=== PATIENT | male | born 1940 | race Caucasian/White ===

== ENCOUNTER 2017-06-16 16:09 | Inpatient (IN) | payer OTHER, MEDICARE ==
[~2017-06-16] VITALS: Ht 180.3 cm; Wt 82.1 kg
[2017-06-16] VITALS (7 sets, daily range): BP systolic 148–206; BP diastolic 67–91; PULSE 68–87; RESP 16–20; TEMP 98.4; O2SAT 95–98
[~2017-06-16 16:09] MED LIST: BETA80TA PO; CLAR10TA7 PO; FINA5TAB77 PO; FOLI1 PO; HYDR12.56 PO; LISI-360 PO; OMEP20TA PO; POLY10O OD; PROS5TAB2 PO; THIA100T PO; TUSSSUS PO
--- NOTE | 2017-06-16 17:09 | PD ---
HPI Chief Complaint: Neuro Symptoms/ Deficits Time Seen by Provider: 16:55 Travel History International Travel<30 days: No Contact w/Intl Traveler<30days: No Traveled to known affect area: No History of Present Illness HPI This is a 76-year-old male who presents for evaluation. Reports that he woke up this morning feeling tired and generalized weakness. He reports that acute 15 p.m. today he was walking into a pond shop when he felt like he lost the ability to see the words that he wanted to say. This lasted for approximately one hour and then completely resolved. He currently feels better, still feels generalized fatigue. He has never had this happen before. He denies any episodes of chest pain, shortness of breath, abdominal pain, facial droop, slurred speech, blurred vision, vision loss, weakness in the upper or lower extremities, numbness or tingling. He reports a history of hypertension. 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) Cancer: No Cardiovascular Problems: Yes High Cholesterol: No Chemotherapy: No Chest Pain: No Congestive Heart Failure: No COPD: No Cerebrovascular Accident: No Diabetes: No Diminished Hearing: No Endocrine: No Gastrointestinal Disorders: Yes GERD: No Glaucoma: No Genitourinary: No Headaches: No Hepatitis: No Hiatal Hernia: No Hypertension: Yes Immune Disorder: No Implanted Vascular Access Dvce: No Kidney Stones: No Musculoskeletal: Yes Neurologic: No Psychiatric: No Reproductive: No Respiratory: No Myocardial Infarction: No Radiation Therapy: No Renal Failure: No Seizures: No Sickle Cell Disease: No Sleep Apnea: No Thyroid Disease: No Ulcer: No Tetanus Vaccination: Unknown Past Surgical History Abdominal Surgery: Yes Cardiac Surgery: No Ear Surgery: No Endocrine Surgery: No Eye Surgery: No Genitourinary Surgery: No Gynecologic Surgery: No Insulin Pump: No Joint Replacement: No Neurologic Surgery: No Oral Surgery: No Pacemaker: Yes Thoracic Surgery: No Other Surgery: Yes Social History Alcohol Use: Yes (occu or monthly) Tobacco Use: No Substance Use: No Allergies-Medications (Allergen,Severity, Reaction): Coded Allergies: No Known Allergies (Verified , 06/16/17) Reported Meds & Prescriptions Reported Meds & Active Scripts Active Reported Betapace (Sotalol Hcl) 80 Mg Tab 80 Mg PO BID Folate 1 Mg Tab (Folic Acid) 1 Mg Tab 1 Mg PO DAILY Thiamine HCl 100 Mg Tab 100 Mg PO DAILY Proscar 5 Mg Tab (Finasteride) 5 Mg Tab 5 Mg PO DAILY Omeprazole 20 Mg Tab 20 Mg PO DAILY Hctz (Hydrochlorothiazide) 12.5 Mg Cap 12.5 Mg PO DAILY Tussionex (Chlorphenir/Hydrocodone Polistirex) Liqcr 5 Ml PO BID Claritin (Loratadine) 10 Mg Tab 5 Mg PO BID Polytrim Opth (Polymyxin/Trimethoprim Sulfate) 10 Ml Soln 1 Drop OD DIRECTED 7 Days Lisinopril 10 Mg Tab 10 Mg PO DAILY Proscar (Finasteride) 5 Mg Tab 5 Mg PO DAILY Omeprazole 20 Mg Tab 20 Mg PO DAILY Review of Systems Except as stated in HPI: all other systems reviewed are Neg Physical Exam Narrative GENERAL: Well-developed well-nourished male in no acute distress SKIN: Warm and dry. HEAD: Atraumatic. Normocephalic. EYES: Pupils equal and round. No scleral icterus. No injection or drainage. ENT: No nasal bleeding or discharge. Mucous membranes pink and moist. NECK: Trachea midline. No JVD. CARDIOVASCULAR: Regular rate and rhythm. No murmur appreciated. RESPIRATORY: No accessory muscle use. Clear to auscultation. Breath sounds equal bilaterally. GASTROINTESTINAL: Abdomen soft, non-tender, nondistended. Hepatic and splenic margins not palpable. MUSCULOSKELETAL: No obvious deformities. No clubbing. No cyanosis. No edema. NEUROLOGICAL: Awake and alert. No obvious cranial nerve deficits. Motor grossly within normal limits. Normal speech. No ataxia, no dysarthria, no upper or lower extremity drift, vision is intact in the peripheral gallo bilaterally. PSYCHIATRIC: Appropriate mood and affect; insight and judgment normal. Data Data Last Documented VS Vital Signs Date Time Temp Pulse Resp B/P (MAP) Pulse Ox O2 Delivery O2 Flow Rate FiO2 06/16/17 18:44 68 206/89 (128) 06/16/17 18:18 17 95 Nasal Cannula 2.00 06/16/17 16:11 98.4 Orders Orders Electrocardiogram (06/16/17 17:04) Prothrombin Time / Inr (Pt) (06/16/17 17:04) Act Partial Throm Time (Ptt) (06/16/17 17:04) Complete Blood Count With Diff (06/16/17 17:04) Comprehensive Metabolic Panel (06/16/17 17:04) Creatine Kinase (Cpk) (06/16/17 17:04) Troponin I (06/16/17 17:04) Ct Brain W/O Iv Contrast(Rout) (06/16/17 17:04) Ecg Monitoring (06/16/17 17:04) Iv Access Insert/Monitor (06/16/17 17:04) Oximetry (06/16/17 17:04) Blood Glucose (06/16/17 17:04) Sodium Chloride 0.9% Flush (Ns Flush) (06/16/17 17:15) CKMB (06/16/17 17:09) CKMB% (06/16/17 17:09) Aspirin Chew (Aspirin Chew) (06/16/17 18:15) Nitroglycerin 2% Oint (Nitroglycerin 2% (06/16/17 18:30) Clonidine (Catapres) (06/16/17 19:00) Labs Laboratory Tests Test 06/16/17 17:09 White Blood Count 7.3 TH/MM3 Red Blood Count 4.62 MIL/MM3 Hemoglobin 13.7 GM/DL Hematocrit 41.7 % Mean Corpuscular Volume 90.2 FL Mean Corpuscular Hemoglobin 29.6 PG Mean Corpuscular Hemoglobin Concent 32.8 % Red Cell Distribution Width 13.8 % Platelet Count 144 TH/MM3 Mean Platelet Volume 9.5 FL Neutrophils (%) (Auto) 73.7 % Lymphocytes (%) (Auto) 14.2 % Monocytes (%) (Auto) 10.9 % Eosinophils (%) (Auto) 0.9 % Basophils (%) (Auto) 0.3 % Neutrophils # (Auto) 5.4 TH/MM3 Lymphocytes # (Auto) 1.0 TH/MM3 Monocytes # (Auto) 0.8 TH/MM3 Eosinophils # (Auto) 0.1 TH/MM3 Basophils # (Auto) 0.0 TH/MM3 CBC Comment DIFF FINAL Differential Comment Prothrombin Time 11.2 SEC Prothromb Time International Ratio 1.0 RATIO Activated Partial Thromboplast Time 26.4 SEC Blood Urea Nitrogen 23 MG/DL Creatinine 1.16 MG/DL Random Glucose 97 MG/DL Total Protein 6.9 GM/DL Albumin 4.1 GM/DL Calcium Level 9.1 MG/DL Alkaline Phosphatase 86 U/L Aspartate Amino Transf (AST/SGOT) 25 U/L Alanine Aminotransferase (ALT/SGPT) 32 U/L Total Bilirubin 0.7 MG/DL Sodium Level 139 MEQ/L Potassium Level 4.2 MEQ/L Chloride Level 108 MEQ/L Carbon Dioxide Level 22.4 MEQ/L Anion Gap 9 MEQ/L Estimat Glomerular Filtration Rate 61 ML/MIN Total Creatine Kinase 376 U/L Creatine Kinase MB 5.8 NG/ML Creatine Kinase MB % 1.5 % Troponin I 0.19 NG/ML [facility] Medical Decision Making Medical Screen Exam Complete: Yes Emergency Medical Condition: Yes Medical Record Reviewed: Yes Differential Diagnosis TIA, CVA, hypoglycemia, electrolyte abnormality, intracranial hemorrhage, intracranial mass Narrative Course This is a 76-year-old male has been feeling tired since this morning. He had a one-hour episode of difficulty with word finding which resolved prior to arrival. His neurologic examination is currently normal. His symptoms are suggestive of a TIA. Plan is for basic lab work, CT of the brain. The patient will be placed on ECG monitoring and pulse oximetry. The patient's CT the brain is normal. His EKG does reveal some ST depression in the lateral leads. His troponin is elevated 0.19. He said no chest pain or shortness of breath today. At this point on the plane to be to admit the patient for TIA, elevated troponin. He was given a full dose aspirin. Nitropaste was added on as he was hypertensive. Additionally a dose of clonidine was added. Diagnosis Primary Impression: TIA (transient ischemic attack) Qualified Codes: G45.9 - Transient cerebral ischemic attack, unspecified Additional Impression: Elevated troponin Admitting Information Admitting Physician Requests: Fernando Herrera Jun 16, 2017 17:09
[2017-06-16] MEDS ORDERED: SODIUM CHLORIDE 0.9% FLUSH 10 ML FLUSH IVF PRN (17:15)
[2017-06-16 17:30] LABS: AUTOMATED NEUTROPHIL # 5.4 TH/MM3 (1.8-7.7); BASOPHIL % 0.3 % (0.0-2.0); EOSINOPHIL # 0.1 TH/MM3 (0-0.4); EOSINOPHIL % 0.9 % (0.0-4.0); HEMATOCRIT 41.7 % (39.0-51.0); HEMO FLAGS DIFF FINAL; LYMPH % 14.2 % (9.0-44.0); MEAN CELL VOLUME 90.2 FL (80.0-100.0); MEAN CORPUSCULAR HEMOGLOBIN 29.6 PG (27.0-34.0); MEAN CORPUSCULAR HGB CONC 32.8 % (32.0-36.0); MONO % 10.9 % (0.0-8.0); NEUT % 73.7 % (16.0-70.0); PLATELET COUNT 144 TH/MM3 (150-450); RED BLOOD COUNT 4.62 MIL/MM3 (4.50-5.90); RED CELL DISTRIBUTION WIDTH 13.8 % (11.6-17.2); WHITE BLOOD COUNT 7.3 TH/MM3 (4.0-11.0)
[2017-06-16 17:43] LABS: APTT (PATIENT) 26.4 SEC (24.3-30.1); PROTHROMBIN TIME - PATIENT 11.2 SEC (9.8-11.6)
[2017-06-16 17:47] LABS: ANION GAP 9 MEQ/L (5-15); AST (GOT) 25 U/L (15-37); BICARBONATE 22.4 MEQ/L (21.0-32.0); BLOOD UREA NITROGEN 23 MG/DL (7-18); CHLORIDE 108 MEQ/L (98-107); GLOMERULAR FILTRATION RATE 61 ML/MIN (>89); POTASSIUM 4.2 MEQ/L (3.5-5.1); SODIUM (NA) 139 MEQ/L (136-145)
[2017-06-16 17:49] LABS: ALT (GPT) 32 U/L (12-78)
[2017-06-16 17:52] LABS: ALKALINE PHOSPHATASE 86 U/L (45-117); CREATINE KINASE 376 U/L (39-308); TOTAL BILIRUBIN ADULT 0.7 MG/DL (0.2-1.0)
--- NOTE | 2017-06-16 17:56 | RADRPT ---
EXAM DATE/TIME: 06/16/2017 17:36 [facility] COMPARISON: No previous studies available for comparison. INDICATIONS : Loss of speech for two hours, now resloved. Patient complains of headache. RADIATION DOSE: 36.32 CTDIvol (mGy) MEDICAL HISTORY : Cardiovascular disease. Hypertension. SURGICAL HISTORY : Pacemaker. ENCOUNTER: Initial ACUITY: 1 day PAIN SCALE: 5/10 LOCATION: cranial TECHNIQUE: Multiple contiguous axial images were obtained of the head. Using automated exposure control and adj ustment of the mA and/or kV according to patient size, radiation dose was kept as low as reasonably a chievable to obtain optimal diagnostic quality images. DICOM format image data is available electro nically for review and comparison. FINDINGS: CEREBRUM: The ventricles are normal for age. No evidence of midline shift, mass lesion, hemorrhage or acute in farction. No extra-axial fluid collections are seen. POSTERIOR FOSSA: The cerebellum and brainstem are intact. The 4th ventricle is midline. The cerebellopontine angle i s unremarkable. EXTRACRANIAL: The visualized portion of the orbits is intact. SKULL: The calvaria is intact. No evidence of skull fracture. CONCLUSION: Negative exam. Maxim Ramachandran MD on June 16, 2017 at 17:54 Board Certified Radiologist. This report was verified electronically.
[2017-06-16 18:05] LABS: CKMB 5.8 NG/ML (0.5-3.6)
[2017-06-16] MEDS ORDERED: ASPIRIN 81 MG CHEW TAB CHEW ONE (18:15)
--- NOTE | 2017-06-16 18:22 | PD ---
Data Data Last Documented VS Vital Signs Date Time Temp Pulse Resp B/P (MAP) Pulse Ox O2 Delivery O2 Flow Rate FiO2 06/16/17 18:18 76 17 199/89 (125) 95 Nasal Cannula 2.00 06/16/17 16:11 98.4 Orders Orders Electrocardiogram (06/16/17 17:04) Prothrombin Time / Inr (Pt) (06/16/17 17:04) Act Partial Throm Time (Ptt) (06/16/17 17:04) Complete Blood Count With Diff (06/16/17 17:04) Comprehensive Metabolic Panel (06/16/17 17:04) Creatine Kinase (Cpk) (06/16/17 17:04) Troponin I (06/16/17 17:04) Ct Brain W/O Iv Contrast(Rout) (06/16/17 17:04) Ecg Monitoring (06/16/17 17:04) Iv Access Insert/Monitor (06/16/17 17:04) Oximetry (06/16/17 17:04) Blood Glucose (06/16/17 17:04) Sodium Chloride 0.9% Flush (Ns Flush) (06/16/17 17:15) CKMB (06/16/17 17:09) CKMB% (06/16/17 17:09) Aspirin Chew (Aspirin Chew) (06/16/17 18:15) Nitroglycerin 2% Oint (Nitroglycerin 2% (06/16/17 18:30) Labs Laboratory Tests Test 06/16/17 17:09 White Blood Count 7.3 TH/MM3 Red Blood Count 4.62 MIL/MM3 Hemoglobin 13.7 GM/DL Hematocrit 41.7 % Mean Corpuscular Volume 90.2 FL Mean Corpuscular Hemoglobin 29.6 PG Mean Corpuscular Hemoglobin Concent 32.8 % Red Cell Distribution Width 13.8 % Platelet Count 144 TH/MM3 Mean Platelet Volume 9.5 FL Neutrophils (%) (Auto) 73.7 % Lymphocytes (%) (Auto) 14.2 % Monocytes (%) (Auto) 10.9 % Eosinophils (%) (Auto) 0.9 % Basophils (%) (Auto) 0.3 % Neutrophils # (Auto) 5.4 TH/MM3 Lymphocytes # (Auto) 1.0 TH/MM3 Monocytes # (Auto) 0.8 TH/MM3 Eosinophils # (Auto) 0.1 TH/MM3 Basophils # (Auto) 0.0 TH/MM3 CBC Comment DIFF FINAL Differential Comment Prothrombin Time 11.2 SEC Prothromb Time International Ratio 1.0 RATIO Activated Partial Thromboplast Time 26.4 SEC Blood Urea Nitrogen 23 MG/DL Creatinine 1.16 MG/DL Random Glucose 97 MG/DL Total Protein 6.9 GM/DL Albumin 4.1 GM/DL Calcium Level 9.1 MG/DL Alkaline Phosphatase 86 U/L Aspartate Amino Transf (AST/SGOT) 25 U/L Alanine Aminotransferase (ALT/SGPT) 32 U/L Total Bilirubin 0.7 MG/DL Sodium Level 139 MEQ/L Potassium Level 4.2 MEQ/L Chloride Level 108 MEQ/L Carbon Dioxide Level 22.4 MEQ/L Anion Gap 9 MEQ/L Estimat Glomerular Filtration Rate 61 ML/MIN Total Creatine Kinase 376 U/L Creatine Kinase MB 5.8 NG/ML Creatine Kinase MB % 1.5 % Troponin I 0.19 NG/ML MDM Medical Record Reviewed: Yes Supervised Visit with ARA: Yes Narrative Course I, Dr. Gomez, have reviewed the advance practice practitioner's documentation and am in agreement, met with the patient face to face, made the diagnosis, and the medical decision making was done by me. *My assessment and Findings: CBC & BMP Diagram 06/16/17 17:09 Total Protein 6.9, Albumin 4.1, Calcium Level 9.1, Alkaline Phosphatase 86, Aspartate Amino Transf (AST/SGOT) 25, Alanine Aminotransferase (ALT/SGPT) 32, Total Bilirubin 0.7 Last [address] 06/16/17 1704 Signed Impressions: Service Date/Time: Friday, June 16, 2017 17:36 - CONCLUSION: Negative exam. Maxim Ramachandran MD Patient will be admitted for serial enzymes given troponin of 0.12 Further investigation of possible TIA. Please refer to the mid-level note. Tyrone Gomez MD Jun 16, 2017 18:22
[2017-06-16] MEDS ORDERED: NITROGLYCERIN 2% OINT 1 GM PACKET TOP ONE (18:30)
[2017-06-16] MEDS ORDERED: BISACODYL 10 MG SUPP RECTAL PRN (19:00)
[2017-06-16] MEDS ORDERED: SODIUM CHLORIDE 0.9% FLUSH 10 ML FLUSH IV FLUSH PRN (19:00)
[2017-06-16] MEDS ORDERED: LACTULOSE SYRUP 20 GM/30 ML CUP PO PRN (19:00)
[2017-06-16] MEDS ORDERED: SENNOSIDES 8.6 MG TAB PO PRN (19:00)
[2017-06-16] MEDS ORDERED: MAGNESIUM HYDROXIDE SUSP 30 ML CUP PO PRN (19:00)
[2017-06-16] MEDS ORDERED: cloNIDine HCL 0.1 MG TAB PO ONE (19:00)
[2017-06-16] MEDS ORDERED: NALOXONE HCL 0.4 MG/ML AMP IV PUSH PRN (19:00)
--- NOTE | 2017-06-16 19:53 | RADRPT ---
EXAM DATE/TIME: 06/16/2017 19:21 [facility] COMPARISON: No previous studies available for comparison. INDICATIONS : Transient isechmic attack. MEDICAL HISTORY : Hypertension. Arthritis. Cataracts. Gastrointesinal disorder. Irregular heartbeat. SURGICAL HISTORY : Pacemaker. Left hip replacement. Left knee surgery. Pelvis surgery. ENCOUNTER: Initial ACUITY: 1 day PAIN SCORE: 0/10 LOCATION: Bilateral neck PEAK SYSTOLIC VELOCITIES (cm/sec): ICA/CCA RATIO: Right: 0.9 Left: 0.7 ICA: Right: 98 Left: 70 CCA: Right: 105 Left: 97 ECA: Right: 185 Left: 104 VERTEBRAL: Right: 35 antegrade Left: 59 antegrade Elevated flow velocities and ICA/CCA ratios have been found to correlate with increased degrees of vessel stenosis, calculated as percentage of diameter relative to a normal segment of distal ICA/CCA FINDINGS: RIGHT CAROTID: No significant stenosis is visualized. The waveforms are within normal limits. LEFT CAROTID: No significant stenosis is visualized. The waveforms are within normal limits. VERTEBRAL ARTERIES: Antegrade flow is seen in both vertebral arteries. MISCELLANEOUS: None. CONCLUSION: No evidence of flow-limiting carotid stenosis Sebastián Harley MD on June 16, 2017 at 19:49 Board Certified Radiologist. This report was verified electronically.
--- NOTE | 2017-06-16 20:42 | HHI.HP ---
HPI Service [facility] Primary Care Physician Unknown Admission Diagnosis TIA, elevated troponin Diagnoses: Travel History International Travel<30 Days: No Contact w/Intl Traveler <30 Da: No Traveled to Known Affected Are: No History of Present Illness when getting out of car with a friend going to [place], was not able to talk around 2:30p.m lasted for about 1 hrs was able to talk, but words did not make sense, sounded like strange words went back home after this, but did go into [place], he did not even really try talking there rested for few min, and started talking ok flavia priscila him to er soon after no other symptoms did travel to [place] by car 2 weeks ago- [address]- stopped only when "my tank ran out" about 3-4 times no calf pain but felt heavy on both legs no shortness of breath Review of Systems Except as stated in HPI: all other systems reviewed are Neg Past Family Social History Past Medical History htn svt- s/p ablation aflutter ablation grade I diastolic heart failure- by echo in 2012 melanoma at the back- s/p resection about 3-4 yrs ago Past Surgical History cardiac ablation for atrial tachycardia/ a flutter melanoma resection 2002- left hip replacement left knee arthoscopic sx tonsilectomy Allergies: Coded Allergies: No Known Allergies (Verified , 06/16/17) Family History father- 1960- , think cancer but not sure brother- had a stroke about 5 yrs ago and after that Social History used to smoke - quit in 1978 quit alcohol 1 yr ago or so- only once every 3 or 4 week,one beer lives on his own, still drives Physical Exam Vital Signs Vital Signs Date Time Temp Pulse Resp B/P (MAP) Pulse Ox O2 Delivery O2 Flow Rate FiO2 06/16/17 20:03 98.4 73 17 167/91 (116) 98 Room Air 06/16/17 18:59 70 184/87 (119) 06/16/17 18:44 68 206/89 (128) 06/16/17 18:18 76 17 199/89 (125) 95 Nasal Cannula 2.00 10/23/17 16:52 83 16 189/87 (121) 96 Nasal Cannula 2.00 06/16/17 16:47 73 20 189/83 (118) 97 Nasal Cannula 2.00 06/16/17 16:11 98.4 87 16 148/67 (94) 95 Physical Exam GENERAL: This is a well-nourished, well-developed patient, in no apparent distress. SKIN: No rashes, ecchymoses or lesions. Cool and dry. HEAD: Atraumatic. Normocephalic. No temporal or scalp tenderness. EYES: Pupils equal round and reactive. Extraocular motions intact. No scleral icterus. No injection or drainage. ENT: Nose without bleeding, purulent drainage or septal hematoma. Throat without erythema, tonsillar hypertrophy or exudate. Uvula midline. Airway patent. NECK: Trachea midline. No JVD or lymphadenopathy. Supple, nontender, no meningeal signs. CARDIOVASCULAR: Regular rate and rhythm without murmurs, gallops, or rubs. RESPIRATORY: Clear to auscultation. Breath sounds equal bilaterally. No wheezes , rales, or rhonchi. GASTROINTESTINAL: Abdomen soft, non-tender, nondistended. No hepato-splenomegaly , or palpable masses. No guarding. MUSCULOSKELETAL: Extremities without clubbing, cyanosis, or edema. No joint tenderness, effusion, or edema noted. No calf tenderness. Negative Homans sign bilaterally. NEUROLOGICAL: Awake and alert. Cranial nerves II through XII intact. Motor and sensory grossly within normal limits. Five out of 5 muscle strength in all muscle groups. Normal speech. Laboratory Laboratory Tests Test 06/16/17 17:09 06/16/17 19:57 White Blood Count 7.3 Red Blood Count 4.62 Hemoglobin 13.7 Hematocrit 41.7 Mean Corpuscular Volume 90.2 Mean Corpuscular Hemoglobin 29.6 Mean Corpuscular Hemoglobin Concent 32.8 Red Cell Distribution Width 13.8 Platelet Count 144 Mean Platelet Volume 9.5 Neutrophils (%) (Auto) 73.7 Lymphocytes (%) (Auto) 14.2 Monocytes (%) (Auto) 10.9 Eosinophils (%) (Auto) 0.9 Basophils (%) (Auto) 0.3 Neutrophils # (Auto) 5.4 Lymphocytes # (Auto) 1.0 Monocytes # (Auto) 0.8 Eosinophils # (Auto) 0.1 Basophils # (Auto) 0.0 CBC Comment DIFF FINAL Differential Comment Prothrombin Time 11.2 Prothromb Time International Ratio 1.0 Activated Partial Thromboplast Time 26.4 Blood Urea Nitrogen 23 Creatinine 1.16 Random Glucose 97 Total Protein 6.9 Albumin 4.1 Calcium Level 9.1 Alkaline Phosphatase 86 Aspartate Amino Transf (AST/SGOT) 25 Alanine Aminotransferase (ALT/SGPT) 32 Total Bilirubin 0.7 Sodium Level 139 Potassium Level 4.2 Chloride Level 108 Carbon Dioxide Level 22.4 Anion Gap 9 Estimat Glomerular Filtration Rate 61 Total Creatine Kinase 376 Creatine Kinase MB 5.8 Creatine Kinase MB % 1.5 Troponin I 0.19 Result Diagram: 06/16/17170806/16/171708 Caprinsam VTE Risk Assessment Caprini Risk Assessment Model Point Value = 1 Point Value = 2 Point Value = 3 Point Value = 5 Age 41-60 Minor surgery BMI > 25 kg/m2 Swollen legs Varicose veins or History of unexplained or recurrent spontaneous Oral contraceptives or hormone replacement Sepsis (< 1 month) Serious lung disease, including pneumonia (< 1 month) Abnormal pulmonary function Acute myocardial infarction Congestive heart failure (< 1 month) History of inflammatory bowel disease Medical patient at bed rest Age 61-74 Arthroscopic surgery Major open surgery (> 45 min) Laparoscopic surgery (> 45 min) Malignancy Confined to bed (> 72 hours) Immobilizing plaster cast Central venous access Age >= 75 History of VTE Family history of VTE Factor V Leiden Prothrombin [id number] Lupus anticoagulant Anticardiolipin antibodies Elevated serum homocysteine Heparin-induced thrombocytopenia Other congenital or acquired thrombophilia Stroke (< 1 month) Elective arthroplasty Hip, pelvis, or leg fracture Acute spinal cord injury (< 1 month) Prophylaxis Regimen Total Risk Factor Score Risk Level Prophylaxis Regimen 0-1 Low Early ambulation 2 Moderate Order ONE of the following: *Sequential Compression Device (SCD) *Heparin 5000 units SQ BID 3-4 Higher Order ONE of the following medications: *Heparin 5000 units SQ TID *Enoxaparin/Lovenox 40 mg SQ daily (WT < 150 kg, CrCl > 30 mL/min) *Enoxaparin/Lovenox 30 mg SQ daily (WT < 150 kg, CrCl > 10-29 mL/min) *Enoxaparin/Lovenox 30 mg SQ BID (WT < 150 kg, CrCl > 30 mL/min) AND/OR *Sequential Compression Device (SCD) 5 or more Highest Order ONE of the following medications: *Heparin 5000 units SQ TID (Preferred with Epidurals) *Enoxaparin/Lovenox 40 mg SQ daily (WT < 150 kg, CrCl > 30 mL/min) *Enoxaparin/Lovenox 30 mg SQ daily (WT < 150 kg, CrCl > 10-29 mL/min) *Enoxaparin/Lovenox 30 mg SQ BID (WT < 150 kg, CrCl > 30 mL/min) AND *Sequential Compression Device (SCD) Assessment and Plan Assessment and Plan TIA elevated troponin hypertensive emergency inpatient admission Alex Mcfadden MD Jun 16, 2017 20:42
[2017-06-16] MEDS: SODIUM CHLORIDE 0.9% FLUSH 10 ML FLUSH IV FLUSH SCH (21:59)
[2017-06-16] MEDS: ENOXAPARIN SODIUM 100 MG/ML SYRINGE SQ SCH (22:00)
--- NOTE | 2017-06-16 22:08 | RADRPT ---
EXAM DATE/TIME: 06/16/2017 21:35 [facility] COMPARISON: No previous studies available for comparison. INDICATIONS : Bilateral leg swelling. MEDICAL HISTORY : Hypertension. Arthritis. Cataracts. Gastrointesinal disorder. Irregular heartbeat. SURGICAL HISTORY : Pacemaker. Left hip replacement. Left knee surgery. Pelvis surgery. ENCOUNTER: Initial ACUITY: 1 day PAIN SCORE: 0/10 LOCATION: Bilateral legs. TECHNIQUE: Venous ultrasound of the left and right leg was performed from the inguinal ligament to the proximal calf. Real-time, color Doppler and spectral tracing, compression and augmentation techniques were us ed. FINDINGS: RIGHT LEG: There is normal compressibility of the deep venous system from the inguinal region to the proximal ca lf. No echogenic clot is seen in the lumen of the common femoral, femoral, popliteal, and posterior tibial veins. There is a normal response of the venous system to proximal and distal augmentation an d respiration. LEFT LEG: There is normal compressibility of the deep venous system from the inguinal region to the proximal ca lf. No echogenic clot is seen in the lumen of the common femoral, femoral, popliteal, and posterior tibial veins. There is a normal response of the venous system to proximal and distal augmentation an d respiration. CONCLUSION: Normal examination. Sebastián Harley MD on June 16, 2017 at 22:06 Board Certified Radiologist. This report was verified electronically.
[2017-06-17] VITALS (9 sets, daily range): BP systolic 132–202; BP diastolic 63–105; PULSE 56–80; RESP 16–23; TEMP 97.5–99.3; O2SAT 94–98
--- NOTE | 2017-06-17 08:05 | PD.CONS ---
History of Present Illness Service Neurology Consult Requested By mike Reason for Consult tia Primary Care Physician Unknown History of Present Illness 76 y/o admitted for tia. sudden onset difficulty with speech. felt mild generalized weakness. lasted minutes and subsided. remembers event. no vision loss. no trauma. glucose 97, ct brain naicp. no previous occurrence. not on any blood thinners/ no aspirin. hx of svt/?aflutter. feels well at present. Review of Systems Except as stated in HPI: all other systems reviewed are Neg Past Family Social History Past Medical History htn svt- s/p ablation at [facility] [place] aflutter ablation grade I diastolic heart failure- by echo in 2013 melanoma at the back- s/p resection about 3-4 yrs ago Past Surgical History cardiac ablation for atrial tachycardia/ a flutter melanoma resection 2002- left hip replacement left knee arthoscopic sx tonsilectomy Allergies: Coded Allergies: No Known Allergies (Verified , 06/16/17) Family History brother- had a stroke Social History quit tob quit alcohol 1 yr ago Review of Systems All other ROS: ROS reviewed as documented in chart Past Family Social History Allergies: Coded Allergies: No Known Allergies (Verified , 06/16/17) Active Ordered Medications Current Medications Medications (Trade) Dose Ordered Sig/Don Route Start Time Stop Time Status Last Admin (NS Flush) 2 ml UNSCH PRN IVF 06/16/17 17:15 (NS Flush) 2 ml UNSCH PRN IV FLUSH 06/16/17 19:00 (NS Flush) 2 ml BID IV FLUSH 06/16/17 21:00 06/16/17 21:59 (Narcan Inj) 0.4 mg UNSCH PRN IV PUSH 06/16/17 19:00 (Milk Of Magnesia Liq) 30 ml Q12H PRN PO 06/16/17 19:00 (Senokot) 17.2 mg Q12H PRN PO 06/16/17 19:00 (Dulcolax Supp) 10 mg DAILY PRN RECTAL 06/16/17 19:00 (Lactulose Liq) 30 ml DAILY PRN PO 06/16/17 19:00 (Catapres) 0.1 mg Q6H PRN PO 06/16/17 19:00 (Ecotrin Ec) 81 mg DAILY PO 06/17/17 09:00 (Lovenox Inj) 100 mg Q12H SQ 06/16/17 21:00 06/16/17 22:00 Exam I&O / VS Vital Signs Date Time Temp Pulse Resp B/P (MAP) Pulse Ox O2 Delivery O2 Flow Rate FiO2 06/17/17 06:20 56 16 132/70 (90) 95 Room Air 06/17/17 00:35 61 23 138/64 (88) 95 06/16/17 20:03 98.4 73 17 167/91 (116) 98 Room Air 06/16/17 18:59 70 184/87 (119) 06/16/17 18:44 68 206/89 (128) 06/16/17 18:18 76 17 199/89 (125) 95 Nasal Cannula 2.00 06/16/17 16:52 83 16 189/87 (121) 96 Nasal Cannula 2.00 06/16/17 16:47 73 20 189/83 (118) 97 Nasal Cannula 2.00 06/16/17 16:11 98.4 87 16 148/67 (94) 95 General: Alert and Oriented, No acute distress Eye: EOMI Respiratory: Non-labored respirations Cardiology: Normal rate Musculoskeletal: ROM Neurologic: Alert, Oriented, Normal sensory, Normal motor, No focal defects, CN II-XII intact, Gag reflex normal, Normal DTR's Psychiatric: Cooperative, Appropriate mood & affect, Normal judgement, Non- suicidal Exam Comments pleasant, ox 3, able to name, read, follows, vff, ou 3-2mm, face sym, no drift Review/Management Diagnosis/Plan: (1) TIA (transient ischemic attack) ICD Codes: G45.9 - Transient cerebral ischemic attack, unspecified Status: Acute Plan: probable left mca tia vs htn encephalopathy recs mri/mra brain aspirin qdaily cardiology eval re: does the pt have aflutter/afib, if so, recommendation on oac ldl <70 bp <200/100 follow exam d/c planning in am (2) Hypertensive encephalopathy ICD Codes: I67.4 - Hypertensive encephalopathy Status: Acute (3) SVT (supraventricular tachycardia) ICD Codes: I47.1 - Supraventricular tachycardia Status: Chronic (4) Elevated troponin ICD Codes: R74.8 - Abnormal levels of other serum enzymes Status: Acute Problem Qualifiers (1) TIA (transient ischemic attack): Qualified Codes: G45.9 - Transient cerebral ischemic attack, unspecified Vernon Sprague MD Jun 17, 2017 08:05
[2017-06-17 08:15] LABS: AUTOMATED NEUTROPHIL # 3.1 TH/MM3 (1.8-7.7); BASOPHIL % 0.7 % (0.0-2.0); EOSINOPHIL # 0.2 TH/MM3 (0-0.4); EOSINOPHIL % 2.9 % (0.0-4.0); HEMATOCRIT 38.4 % (39.0-51.0); HEMO FLAGS DIFF FINAL; LYMPHOCYTE # 1.4 TH/MM3 (1.0-4.8); MEAN CELL VOLUME 90.7 FL (80.0-100.0); MEAN CORPUSCULAR HGB CONC 33.1 % (32.0-36.0); MONO % 10.9 % (0.0-8.0); NEUT % 59.5 % (16.0-70.0); PLATELET COUNT 118 TH/MM3 (150-450); RED BLOOD COUNT 4.24 MIL/MM3 (4.50-5.90); RED CELL DISTRIBUTION WIDTH 13.8 % (11.6-17.2); WHITE BLOOD COUNT 5.3 TH/MM3 (4.0-11.0)
[2017-06-17 08:31] LABS: ANION GAP 8 MEQ/L (5-15); AST (GOT) 17 U/L (15-37); BICARBONATE 25.2 MEQ/L (21.0-32.0); BLOOD UREA NITROGEN 21 MG/DL (7-18); CHLORIDE 109 MEQ/L (98-107); GLOMERULAR FILTRATION RATE 85 ML/MIN (>89); POTASSIUM 3.7 MEQ/L (3.5-5.1); SODIUM (NA) 142 MEQ/L (136-145)
[2017-06-17 08:36] LABS: ALKALINE PHOSPHATASE 73 U/L (45-117); ALT (GPT) 24 U/L (12-78); TOTAL BILIRUBIN ADULT 0.8 MG/DL (0.2-1.0)
[2017-06-17] MEDS: SODIUM CHLORIDE 0.9% FLUSH 10 ML FLUSH IV FLUSH SCH ×2 (08:59→21:02)
[2017-06-17] MEDS: ENOXAPARIN SODIUM 100 MG/ML SYRINGE SQ SCH ×2 (09:00→21:01)
[2017-06-17] MEDS: ASPIRIN EC 81 MG TABEC PO SCH (09:00)
[2017-06-17] MEDS ORDERED: LIPI20TA PO (11:09)
[2017-06-17] MEDS ORDERED: TAMS5CAP PO (11:09)
[2017-06-17] MEDS ORDERED: NAPR500 PO (11:09)
[2017-06-17] MEDS ORDERED: PROS5TAB PO (11:09)
[2017-06-17] MEDS ORDERED: OMEP20TA PO (11:09)
[2017-06-17] MEDS ORDERED: COZA50TA PO (11:09)
--- NOTE | 2017-06-17 13:02 | RADRPT ---
EXAM DATE/TIME: 06/17/2017 11:39 [facility] COMPARISON: No previous studies available for comparison. INDICATIONS : TIA. Loss of speech for two hours, now resolved. MEDICAL HISTORY : Hypertension. SURGICAL HISTORY : Left hip and knee. Pelvis. ENCOUNTER: Subsequent ACUITY: 1 day PAIN SCORE: 0/10 LOCATION: head. Please note a normal MRA of the brain does not entirely exclude the possibility of a small aneurysm, nor the possibility of distal intracranial vessel disease. TECHNIQUE: 3D time of flight MRA was performed. Source images, multiplanar STS MIP, and 3D volume MIP reconstru ctions were reviewed. FINDINGS: There is excellent visualization of the major intracranial arteries out to the second-order branch ve ssels. The right A1 segment appears to be very atretic and there may be an azygos configuration of th e anterior cerebral artery. Otherwise, the posterior cerebral and middle cerebral arteries are widely patent. 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 CONCLUSION: 1. 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 However, considering the patient's clinical history, cannot compl etely exclude occlusion of the right anterior cerebral artery. If symptoms persist, CTA of the intrac ranial vessels could be performed for further anatomic characterization. 2. 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 3. Intracranial vessels are otherwise patent with disease Maxim Ramachandran MD on June 17, 2017 at 12:52 Board Certified Radiologist. This report was verified electronically.
--- NOTE | 2017-06-17 13:10 | RADRPT ---
EXAM DATE/TIME: 06/17/2017 11:39 [facility] COMPARISON: No previous studies available for comparison. INDICATIONS : TIA. Loss of speech for two hours, now resloved. MEDICAL HISTORY : Hypertension. SURGICAL HISTORY : Left hip and knee. Pelvis. ENCOUNTER: Subsequent ACUITY: 1 day PAIN SCORE: 0/10 LOCATION: head. TECHNIQUE: Multiplanar, multisequence MRI of the brain was performed without contrast. FINDINGS: CEREBRUM: The ventricles are normal for age. No evidence of midline shift, mass lesion, hemorrhage or acute in farction. No extraaxial fluid collections are seen. The pituitary gland and suprasellar cistern are normal in configuration. WHITE MATTER: Mild periventricular and scattered deep white matter tract areas of minimal small vessel ischemic dem yelination. POSTERIOR FOSSA: The cerebellum and brainstem are intact. The 4th ventricle is midline. The cerebellopontine angle is unremarkable. The cerebellar tonsils are normal in position. DIFFUSION IMAGING: No focal areas of restricted diffusion are seen. No evidence of acute infarction. EXTRACRANIAL: The visualized portions of the orbits and paranasal sinuses are unremarkable. CONCLUSION: Minimal, chronic small vessel ischemic demyelination. Nothing acute Maxim Ramachandran MD on June 17, 2017 at 13:00 Board Certified Radiologist. This report was verified electronically.
[2017-06-17 14:26] LABS: LDL CHOLESTEROL 63 MG/DL (0-99)
--- NOTE | 2017-06-17 15:10 | HHI.PR ---
Subjective Remarks Patient reports is feeling great. No other issues with speech difficulties. No focal weakness. Inquiring about when he can go home. Objective Vitals Vital Signs Date Time Temp Pulse Resp B/P (MAP) Pulse Ox O2 Delivery O2 Flow Rate FiO2 06/17/17 13:19 06/17/17 12:38 99.3 72 20 176/77 (110) 94 06/17/17 12:00 65 06/17/17 11:14 98.1 80 19 134/79 (97) 98 Room Air 06/17/17 08:54 97.6 75 21 137/63 (87) 94 Room Air 06/17/17 06:20 56 16 132/70 (90) 95 Room Air 06/17/17 00:35 61 23 138/64 (88) 95 06/16/17 20:03 98.4 73 17 167/91 (116) 98 Room Air 06/16/17 18:59 70 184/87 (119) 06/16/17 18:44 68 206/89 (128) 06/16/17 18:18 76 17 199/89 (125) 95 Nasal Cannula 2.00 06/16/17 16:52 83 16 189/87 (121) 96 Nasal Cannula 2.00 06/16/17 16:47 73 20 189/83 (118) 97 Nasal Cannula 2.00 06/16/17 16:11 98.4 87 16 148/67 (94) 95 I/O 06/16/17 06/16/17 06/16/17 06/17/17 06/17/17 06/17/17 07:00 15:00 23:00 07:00 15:00 23:00 Intake Total 1420 ml Balance 1420 ml Intake Oral 1420 ml # Voids 1 Result Diagram: 06/17/17 0550 06/17/17 0550 Objective Remarks GENERAL: This is a well-nourished, well-developed patient, in no apparent distress. CARDIOVASCULAR: Normal rate and regular rhythm without murmurs, gallops, or rubs. RESPIRATORY: Good respiratory efforts. Breath sounds equal and clear to auscultation bilaterally. GASTROINTESTINAL: Abdomen soft, non-tender, non-distended. Normal active bowel sounds MUSCULOSKELETAL: Extremities without cyanosis, or edema. NEURO: Alert & Oriented x4 to person, place, time, situation. Moves all ext x4 PSYCH: Appropriate mood and affect. A/P Problem List: (1) TIA (transient ischemic attack) ICD Code: G45.9 - Transient cerebral ischemic attack, unspecified Status: Acute Plan: Neurology following. Patient started on aspirin Head MRI/MRA per neurology. Cardiology consulted to rule out A. fib (2) Elevated troponin ICD Code: R74.8 - Abnormal levels of other serum enzymes Status: Acute Plan: Patient was started on therapeutic Lovenox. -Downtrending. - Cardiology consulted for assistance. Discharge Planning Pending clearance from cardiology and neurology. Possibly tomorrow. Problem Qualifiers (1) TIA (transient ischemic attack): Qualified Codes: G45.9 - Transient cerebral ischemic attack, unspecified Wanda Torres MD Jun 17, 2017 15:10
--- NOTE | 2017-06-17 15:41 | PD.CONS ---
HPI Consult Requested By Primary Care Physician Unknown History of Present Illness 76 y/o M admitted with sudden onset difficulty with speech and generalized weakness/TIA. The episodes lasted minutes. CT head negative for CVA. Past medical history significant to right sided atrial tachycardia and atrial flutter s/p ablation with Dr. De Santiago in 2013. Denies palpitations, chest pain, shortness of breath, leg edema or syncope. No tachyarrhythmias on telemetry. EKG sinus rhythm and episodes of bigeminy. Cardiology consulted for minimally elevated troponin. Review of Systems Consitutional: DENIES: Fatigue, Fever, Chills, Weight gain, Weight loss Eyes: DENIES: Amaurosis Fugax, Change in vision HEENT: DENIES: Lightheadedness, Change in hearing Respiratory: DENIES: See HPI, Cough, Snoring, Shortness of breath, Wheezing, Sputum production Cardiovascular: DENIES: See HPI, Chest pain, Palpitations, Syncope, Tachycardia Gastrointestinal: DENIES: Nausea, Vomiting, Change in bowel habits, Reflux, Bloody stools, Melena Genitourinary: DENIES: Urinary incontinence, Difficulty voiding Integumentary: DENIES: Rash Neurologic: DENIES: Tingling or numbness, Memory problems, Poor Balance, Stroke symptoms Musculoskeletal: DENIES: Joint pain, Muscle pain, Limited range of motion, Back pain Psychiatric: DENIES: Anxiety, Depression, Sleep disturbances Hematologic: DENIES: Bruising tendencies, Bleeding tendencies Endocrine: DENIES: Weight gain, Weight loss, Thyroid disease Past Family Social History Allergies: Coded Allergies: No Known Allergies (Verified , 06/16/17) Past Medical History htn svt- s/p ablation at [facility] [place] aflutter ablation grade I diastolic heart failure- by echo in 2013 melanoma at the back- s/p resection about 3-4 yrs ago Past Surgical History cardiac ablation for atrial tachycardia/ a flutter melanoma resection 2002- left hip replacement left knee arthoscopic sx tonsilectomy Reported Medications Reported Meds & Active Scripts Active Reported Flomax (Tamsulosin HCl) 0.4 Mg Cap 0.4 Mg PO HS Cozaar (Losartan Potassium) 50 Mg Tab 50 Mg PO DAILY Proscar (Finasteride) 5 Mg Tab 5 Mg PO DAILY Do not crush. Naprosyn (Naproxen) 500 Mg Tab 500 Mg PO BID Omeprazole 20 Mg Tab 20 Mg PO DAILY Lipitor (Atorvastatin Calcium) 20 Mg Tab 20 Mg PO HS Active Ordered Medications Current Medications Medications (Trade) Dose Ordered Sig/Don Route Start Time Stop Time Status Last Admin (NS Flush) 2 ml UNSCH PRN IVF 06/16/17 17:15 (NS Flush) 2 ml UNSCH PRN IV FLUSH 06/16/17 19:00 (NS Flush) 2 ml BID IV FLUSH 06/16/17 21:00 06/17/17 08:59 (Narcan Inj) 0.4 mg UNSCH PRN IV PUSH 06/16/17 19:00 (Milk Of Magnesia Liq) 30 ml Q12H PRN PO 06/16/17 19:00 (Senokot) 17.2 mg Q12H PRN PO 06/16/17 19:00 (Dulcolax Supp) 10 mg DAILY PRN RECTAL 06/16/17 19:00 (Lactulose Liq) 30 ml DAILY PRN PO 06/16/17 19:00 (Catapres) 0.1 mg Q6H PRN PO 06/16/17 19:00 (Ecotrin Ec) 81 mg DAILY PO 06/17/17 09:00 06/17/17 09:00 (Lovenox Inj) 100 mg Q12H SQ 06/16/17 21:00 06/17/17 09:00 Family History brother- had a stroke Social History quit tob quit alcohol 1 yr ago Physical Exam Vital Signs Vital Signs Date Time Temp Pulse Resp B/P (MAP) Pulse Ox O2 Delivery O2 Flow Rate FiO2 06/17/17 13:19 06/17/17 12:38 99.3 72 20 176/77 (110) 94 06/17/17 12:00 65 06/17/17 11:14 98.1 80 19 134/79 (97) 98 Room Air 06/17/17 08:54 97.6 75 21 137/63 (87) 94 Room Air 06/17/17 06:20 56 16 132/70 (90) 95 Room Air 06/17/17 00:35 61 23 138/64 (88) 95 06/16/17 20:03 98.4 73 17 167/91 (116) 98 Room Air 06/16/17 18:59 70 184/87 (119) 06/16/17 18:44 68 206/89 (128) 06/16/17 18:18 76 17 199/89 (125) 95 Nasal Cannula 2.00 06/16/17 16:52 83 16 189/87 (121) 96 Nasal Cannula 2.00 06/16/17 16:47 73 20 189/83 (118) 97 Nasal Cannula 2.00 06/16/17 16:11 98.4 87 16 148/67 (94) 95 Physical Exam GENERAL: Well-nourished, well-developed patient. SKIN: Warm and dry. HEAD: Normocephalic. EYES: No scleral icterus. No injection or drainage. NECK: Supple, trachea midline. No JVD or lymphadenopathy. CARDIOVASCULAR: Regular rate and rhythm without murmurs, gallops, or rubs. RESPIRATORY: Breath sounds equal bilaterally. No accessory muscle use. GASTROINTESTINAL: Abdomen soft, non-tender, nondistended. EXTREMITIES: No cyanosis, or edema. NEUROLOGICAL: Awake, alert, and oriented x 3. Non-focal. Laboratory Laboratory Tests Test 06/16/17 17:09 06/16/17 19:57 06/17/17 01:25 06/17/17 05:50 White Blood Count 7.3 5.3 Red Blood Count 4.62 4.24 Hemoglobin 13.7 12.7 Hematocrit 41.7 38.4 Mean Corpuscular Volume 90.2 90.7 Mean Corpuscular Hemoglobin 29.6 30.0 Mean Corpuscular Hemoglobin Concent 32.8 33.1 Red Cell Distribution Width 13.8 13.8 Platelet Count 144 118 Mean Platelet Volume 9.5 9.9 Neutrophils (%) (Auto) 73.7 59.5 Lymphocytes (%) (Auto) 14.2 26.0 Monocytes (%) (Auto) 10.9 10.9 Eosinophils (%) (Auto) 0.9 2.9 Basophils (%) (Auto) 0.3 0.7 Neutrophils # (Auto) 5.4 3.1 Lymphocytes # (Auto) 1.0 1.4 Monocytes # (Auto) 0.8 0.6 Eosinophils # (Auto) 0.1 0.2 Basophils # (Auto) 0.0 0.0 CBC Comment DIFF FINAL DIFF FINAL Differential Comment Prothrombin Time 11.2 Prothromb Time International Ratio 1.0 Activated Partial Thromboplast Time 26.4 Blood Urea Nitrogen 23 21 Creatinine 1.16 0.87 Random Glucose 97 77 Total Protein 6.9 6.1 Albumin 4.1 3.5 Calcium Level 9.1 8.5 Alkaline Phosphatase 86 73 Aspartate Amino Transf (AST/SGOT) 25 17 Alanine Aminotransferase (ALT/SGPT) 32 24 Total Bilirubin 0.7 0.8 Sodium Level 139 142 Potassium Level 4.2 3.7 Chloride Level 108 109 Carbon Dioxide Level 22.4 25.2 Anion Gap 9 8 Estimat Glomerular Filtration Rate 61 85 Total Creatine Kinase 376 Creatine Kinase MB 5.8 Creatine Kinase MB % 1.5 Troponin I 0.19 0.20 0.15 Erythrocyte Sedimentation Rate 2 Triglycerides Level 89 Cholesterol Level 128 LDL Cholesterol 63 HDL Cholesterol 47.0 Cholesterol/HDL Ratio 2.72 Vitamin B12 Level 281 Thyroid Stimulating Hormone 3rd Gen 2.070 Result Diagram: 06/17/1750 06/17/17549 Imaging Last Impressions Head Magnetic Resonance Angiography 06/17/17 0000 Signed Impressions: Service Date/Time: Saturday, June 17, 2017 11:39 - CONCLUSION: 1. 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 However, considering the patient's clinical history, cannot completely exclude occlusion of the right anterior cerebral artery. If symptoms persist, CTA of the intracranial vessels could be performed for further anatomic characterization. 2. 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 3. Intracranial vessels are otherwise patent with disease Maxim Ramachandran MD Brain MRI 06/17/17 0000 Signed Impressions: Service Date/Time: Saturday, June 17, 2017 11:39 - CONCLUSION: Minimal, chronic small vessel ischemic demyelination. Nothing acute Maxim Ramachandran MD Head CT 06/16/171703 Signed Impressions: Service Date/Time: Friday, June 16, 2017 17:36 - CONCLUSION: Negative exam. Maxim Ramachandran MD Lower Extremity Ultrasound 06/16/17 Signed Impressions: Service Date/Time: Friday, June 16, 2017 21:35 - CONCLUSION: Normal examination. Sebastián Harley MD Carotid Artery Ultrasound 06/16/17 0000 Signed Impressions: Service Date/Time: Friday, June 16, 2017 19:21 - CONCLUSION: No evidence of flow-limiting carotid stenosis Sebastián Harley MD Assessment and Plan Problem List: (1) Elevated troponin ICD Codes: R74.8 - Abnormal levels of other serum enzymes Status: Acute Plan: 76 y/o admitted with TIA, hx significant for AF s/p ablation. No evidence of new AF on telemetry or EKG's, however it cannot be excluded. Regarding minimally elevated troponin this is most likely due to uncontrolled HTN. Recommendations: 1. Loop recorder in AM 2. Neuro follow up 3. Cont cardiac home medications Case discuss with Dr. De Santiago (2) TIA (transient ischemic attack) ICD Codes: G45.9 - Transient cerebral ischemic attack, unspecified Status: Acute (3) Hypertensive encephalopathy ICD Codes: I67.4 - Hypertensive encephalopathy Status: Acute (4) SVT (supraventricular tachycardia) ICD Codes: I47.1 - Supraventricular tachycardia Status: Chronic Problem Qualifiers (1) TIA (transient ischemic attack): Qualified Codes: G45.9 - Transient cerebral ischemic attack, unspecified Leif Mac MD Jun 17, 2017 15:41
[2017-06-17 15:59] LABS: HEMOGLOBIN A1a 1.4 %; HEMOGLOBIN A1b 0.8 %; HEMOGLOBIN F 1.1 %; HEMOGLOBIN LA1C 1.8 %; HEMOGLOBIN P3 3.8 %
[2017-06-17] MEDS: cloNIDine HCL 0.1 MG TAB PO PRN (17:15)
--- NOTE | 2017-06-17 18:36 | ECHRPT ---
Indication: cva/tia CONCLUSIONS The left ventricular systolic function is low normal with an estimated ejection fraction in the rang e of 50- 55%. [id number] mitral valve regurgitation. No aortic valve regurgitation. There is mild tricuspid valve regurgitation. BP: / HR: Rhythm: Technical Quality:Good FINDINGS LEFT VENTRICLE The left ventricular systolic function is low normal with an estimated ejection fraction in the rang e of 50- 55%. MITRAL VALVE [id number] mitral valve regurgitation. Structurally normal mitral valve. AORTIC VALVE Trileaflet aortic valve. No aortic valve regurgitation. TRICUSPID VALVE Structurally normal tricuspid valve. There is mild tricuspid valve regurgitation. Hay Hernandez MD, FACC, FSCAI (Electronically Signed) Final Date:17 June 2017 18:35
[2017-06-18] VITALS: BP 160/64; PULSE 57; RESP 18; TEMP 97.6; O2SAT 96
[2017-06-18 04:00] VITALS: BP 155/74; PULSE 62; RESP 18; TEMP 97.6; O2SAT 97
--- NOTE | 2017-06-18 07:21 | EKG ---
Date Performed: 06/16/2017 Time Performed: 16:43:24 PTAGE: 76 years EKG: Sinus rhythm WITH FREQUENT VENTRICULAR PREMATURE COMPLEXES RIGHT BUNDLE BRANCH BLOCK ABNORMAL ECG PREVIOUS TRACING : 09/22/2012 06.06 DOCTOR: Hay Hernandez Interpretating Date/Time 06/18/2017 07:20:54
--- NOTE | 2017-06-18 07:21 | EKG ---
Date Performed: 06/16/2017 Time Performed: 19:47:42 PTAGE: 76 years EKG: Sinus rhythm WITH FREQUENT VENTRICULAR PREMATURE COMPLEXES IN A BIGEMINAL PATTERN POSSIBLE LEFT ATRIAL ENLARGEMEN T RIGHT BUNDLE BRANCH BLOCK ABNORMAL ECG PREVIOUS TRACING : 06/16/2017 16.43 DOCTOR: Hay Hernandez Interpretating Date/Time 06/18/2017 07:21:02
--- NOTE | 2017-06-18 07:21 | EKG ---
Date Performed: 06/17/2017 Time Performed: 01:17:13 PTAGE: 76 years EKG: Sinus rhythm WITH OCCASIONAL VENTRICULAR PREMATURE COMPLEXES RIGHT BUNDLE BRANCH BLOCK PROLONGED CORRECTED QT INT ERVAL ABNORMAL ECG PREVIOUS TRACING : 06/16/2017 19.47 DOCTOR: Hay Hernandez Interpretating Date/Time 06/18/2017 07:21:17
--- NOTE | 2017-06-18 07:24 | EKG ---
Date Performed: 06/17/2017 Time Performed: 05:58:56 PTAGE: 76 years EKG: SINUS BRADYCARDIA RIGHT BUNDLE BRANCH BLOCK PROLONGED CORRECTED QT INTERVAL ABNORMAL ECG NO PREVIOUS TRACING DOCTOR: Hay Hernandez Interpretating Date/Time 06/18/2017 07:22:35
[2017-06-18 08:00] VITALS: BP 170/83; PULSE 58; PULSE 61; RESP 18; TEMP 97.4; O2SAT 97
--- NOTE | 2017-06-18 08:09 | HHI.PR ---
Review/Management Diagnosis/Plan: (1) TIA (transient ischemic attack) ICD Codes: G45.9 - Transient cerebral ischemic attack, unspecified Status: Acute Plan: probable left mca tia vs htn encephalopathy neuro stable; seen by cardiology recs mri/mra brain- no acute infarct f/u eeg aspirin qdaily cardiology-placing a loop recorder ldl <70 bp <200/100; d/w pt dash diet d/c planning today from neurology and outpatient f/u (2) Hypertensive encephalopathy ICD Codes: I67.4 - Hypertensive encephalopathy Status: Acute (3) SVT (supraventricular tachycardia) ICD Codes: I47.1 - Supraventricular tachycardia Status: Chronic (4) Elevated troponin ICD Codes: R74.8 - Abnormal levels of other serum enzymes Status: Acute Subjective Subjective Comments No acute events reported No headache No chest pain No dyspnea Active Medications Current Medications Medications (Trade) Dose Ordered Sig/Don Route Start Time Stop Time Status Last Admin (NS Flush) 2 ml UNSCH PRN IVF 06/16/17 17:15 (NS Flush) 2 ml UNSCH PRN IV FLUSH 06/16/17 19:00 (NS Flush) 2 ml BID IV FLUSH 06/16/17 21:00 06/17/17 21:02 (Narcan Inj) 0.4 mg UNSCH PRN IV PUSH 06/16/17 19:00 (Milk Of Magnesia Liq) 30 ml Q12H PRN PO 06/16/17 19:00 (Senokot) 17.2 mg Q12H PRN PO 06/16/17 19:00 (Dulcolax Supp) 10 mg DAILY PRN RECTAL 06/16/17 19:00 (Lactulose Liq) 30 ml DAILY PRN PO 06/16/17 19:00 (Catapres) 0.1 mg Q6H PRN PO 06/16/17 19:00 06/17/17 17:15 (Ecotrin Ec) 81 mg DAILY PO 06/17/17 09:00 06/17/17 09:00 (Lovenox Inj) 100 mg Q12H SQ 06/16/17 21:00 06/17/17 21:01 Allergies Allergies Coded Allergies No Known Allergies (Thwfeawm27/23/17) Review of Systems All other ROS: ROS reviewed as documented in chart Exam I&O / VS Vital Signs Date Time Temp Pulse Resp B/P (MAP) Pulse Ox O2 Delivery O2 Flow Rate FiO2 06/18/17 04:00 97.6 62 18 155/74 (101) 97 06/18/17 00:00 97.6 57 18 160/64 (96) 96 06/17/17 21:00 60 06/17/17 20:15 97.5 65 20 166/88 (114) 97 06/17/17 16:00 97.6 63 18 202/93 (129) 95 184/105 (131) 06/17/17 13:19 06/17/17 12:38 99.3 72 20 176/77 (110) 94 06/17/17 12:00 65 06/17/17 11:14 98.1 80 19 134/79 (97) 98 Room Air 06/17/17 08:54 97.6 75 21 137/63 (87) 94 Room Air General: Alert and Oriented, No acute distress Eye: EOMI Respiratory: Non-labored respirations Cardiology: Normal rate Musculoskeletal: ROM Neurologic: Alert, Oriented, Normal sensory, Normal motor, No focal defects, CN II-XII intact, Gag reflex normal, Normal DTR's Psychiatric: Cooperative, Appropriate mood & affect, Normal judgement, Non- suicidal Exam Comments pleasant, ox 3, articualte, sitting up eating breakfast, follows, vff, ou 3-2mm , face sym, no drift Problem Qualifiers (1) TIA (transient ischemic attack): Qualified Codes: G45.9 - Transient cerebral ischemic attack, unspecified Vernon Sprague MD Jun 18, 2017 08:09
[2017-06-18] MEDS: ASPIRIN EC 81 MG TABEC PO SCH (08:22)
[2017-06-18] MEDS: cloNIDine HCL 0.1 MG TAB PO PRN (08:22)
[2017-06-18] MEDS: ENOXAPARIN SODIUM 100 MG/ML SYRINGE SQ SCH (08:23)
[2017-06-18] MEDS: SODIUM CHLORIDE 0.9% FLUSH 10 ML FLUSH IV FLUSH SCH (08:27)
[2017-06-18] MEDS ORDERED: ACETAMINOPHEN 325 MG TAB PO PRN (08:45)
[2017-06-18] MEDS ORDERED: ONDANSETRON HCL 4 MG/2 ML VIAL IV PUSH PRN (08:45)
[2017-06-18] MEDS ORDERED: CALCIUM CARBONATE 500 MG CHEWABLE TAB CHEW PRN (08:45)
[2017-06-18] MEDS ORDERED: FINASTERIDE 5 MG TAB PO SCH (09:00)
[2017-06-18] MEDS ORDERED: LOSARTAN 50 MG TAB PO SCH (09:00)
[2017-06-18] MEDS ORDERED: PANTOPRAZOLE SOD 20 MG DELAYED RELEASE TAB PO SCH (09:00)
[2017-06-18] MEDS ORDERED: ASPI-99 PO (09:44)
--- NOTE | 2017-06-18 11:32 | HHI.PR ---
Subjective Remarks Follow-up neuro symptoms. Patient is doing okay awaiting loop recorder. Discussed with RN, patient is medically stable for discharge post loop recorder Objective Vitals Vital Signs Date Time Temp Pulse Resp B/P (MAP) Pulse Ox O2 Delivery O2 Flow Rate FiO2 06/18/17 08:00 97.4 58 18 170/83 (112) 97 06/18/17 04:00 97.6 62 18 155/74 (101) 97 06/18/17 00:00 97.6 57 18 160/64 (96) 96 06/17/17 21:00 60 06/17/17 20:15 97.5 65 20 166/88 (114) 97 06/17/17 16:00 97.6 63 18 202/93 (129) 95 184/105 (131) 06/17/17 13:19 06/17/17 12:38 99.3 72 20 176/77 (110) 94 06/17/17 12:00 65 I/O 06/17/17 06/17/17 06/17/17 06/18/17 06/18/17 06/18/17 07:00 15:00 23:00 07:00 15:00 23:00 Intake Total 1420 ml 600 ml Output Total 900 ml Balance 1420 ml -300 ml Intake Oral 1420 ml 600 ml Output Urine Total 900 ml # Voids 1 Result Diagram: 06/17/17 0550 06/17/17 0550 Imaging Last Impressions Head Magnetic Resonance Angiography 06/17/17 0000 Signed Impressions: Service Date/Time: Saturday, June 17, 2017 11:39 - CONCLUSION: 1. 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 However, considering the patient's clinical history, cannot completely exclude occlusion of the right anterior cerebral artery. If symptoms persist, CTA of the intracranial vessels could be performed for further anatomic characterization. 2. 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 3. Intracranial vessels are otherwise patent with disease Maxim Ramachandran MD Brain MRI 06/17/17 0000 Signed Impressions: Service Date/Time: Saturday, June 17, 2017 11:39 - CONCLUSION: Minimal, chronic small vessel ischemic demyelination. Nothing acute Maxim Ramachandran MD Head CT 06/16/17 1704 Signed Impressions: Service Date/Time: Friday, June 16, 2017 17:36 - CONCLUSION: Negative exam. Maxim Ramachandran MD Lower Extremity Ultrasound 06/16/17 0000 Signed Impressions: Service Date/Time: Friday, June 16, 2017 21:35 - CONCLUSION: Normal examination. Sebastián Harley MD Carotid Artery Ultrasound 06/16/17 0000 Signed Impressions: Service Date/Time: Friday, June 16, 2017 19:21 - CONCLUSION: No evidence of flow-limiting carotid stenosis Sebastián Harley MD Objective Remarks GENERAL: This is a well-nourished, well-developed patient, in no apparent distress. CARDIOVASCULAR: Normal rate and regular rhythm without murmurs, gallops, or rubs. RESPIRATORY: Good respiratory efforts. Breath sounds equal and clear to auscultation bilaterally. GASTROINTESTINAL: Abdomen soft, non-tender, non-distended. Normal active bowel sounds MUSCULOSKELETAL: Extremities without cyanosis, or edema. NEURO: Alert & Oriented x4 to person, place, time, situation. Moves all ext x4 PSYCH: Appropriate mood and affect. Procedures Loop recorder A/P Problem List: (1) TIA (transient ischemic attack) ICD Code: G45.9 - Transient cerebral ischemic attack, unspecified Status: Acute (2) Elevated troponin ICD Code: R74.8 - Abnormal levels of other serum enzymes Status: Acute Assessment and Plan (1) TIA (transient ischemic attack) vs hypertensive encephalopathy. Resolved MRI without stroke. Patient started on aspirin and Lipitor. Risk factor modification A1c 5.8. LDL 63. Strict BP control. No evidence of A. fib EKGs reviewed. History of atrial flutter status post ablation. Loop recorder will be implanted. Follow-up EEG results prior to discharge (2) Elevated troponin [place] to be secondary to uncontrolled hypertension per cardiology. Echocardiogram with EF of 50% with no motion wall abnormality. Continue aspirin (3) HTN. Restart home medications DVT prophylaxis with Lovenox and early ambulation Problem Qualifiers (1) TIA (transient ischemic attack): Qualified Codes: G45.9 - Transient cerebral ischemic attack, unspecified Denver Levine MD Jun 18, 2017 11:32
[2017-06-18 12:00] VITALS: BP 147/68; PULSE 69; RESP 18; TEMP 97.2; O2SAT 97
[2017-06-18] MEDS ORDERED: MIDAZOLAM HCL 5 MG/5 ML VIAL ONE (14:29)
[2017-06-18] MEDS ORDERED: ceFAZolin 2 GM PREMIX 50 ML IV SCH (15:15)
--- NOTE | 2017-06-18 15:30 | HHI.DCPOC ---
Discharge Care Plan Diagnosis: (1) Hypertensive encephalopathy (2) TIA (transient ischemic attack) (3) Elevated troponin Your Health Problems Are: Difficulty with ADL Exercise Tolerance Goals to Promote Your Health * To prevent worsening of your condition and complications * To maintain your health at the optimal level Directions to Meet Your Goals Take your medications as prescribed Follow your dietary instruction Follow activity as directed Keep your appointments as scheduled Take your immunizations and boosters as scheduled If your symptoms worsen call your PCP, if no PCP go to Urgent Care Center or Emergency Room Smoking is Dangerous to Your Health. Avoid second hand smoke Call the 24-hour hour crisis hotline for domestic abuse at Denver Levine MD Jun 18, 2017 15:30
--- NOTE | 2017-06-18 15:37 | HHI.DS ---
Discharge Summary Admission Date Jun 16, 2017 at 21:16 Discharge Date: Jun 18, 2017 Admitting Diagnosis TIA, elevated troponin (1) TIA (transient ischemic attack) ICD Code: G45.9 - Transient cerebral ischemic attack, unspecified Status: Acute (2) Elevated troponin ICD Code: R74.8 - Abnormal levels of other serum enzymes Status: Acute Procedures Loop recorder Brief History - From Admission when getting out of car with a friend going to [employer], was not able to talk around 2:30p.m lasted for about 1 hrs was able to talk, but words did not make sense, sounded like strange words went back home after this, but did go into [employer], he did not even really try talking there rested for few min, and started talking ok freind priscila him to er soon after no other symptoms did travel to [place] by car 2 weeks ago- [address]- stopped only when "my tank ran out" about 3-4 times no calf pain but felt heavy on both legs no shortness of breath CBC/BMP: 06/17/17 0550 06/17/17 0550 Significant Findings Laboratory Tests Test 06/16/17 17:09 06/16/17 19:57 06/17/17 01:25 06/17/17 05:50 Platelet Count 144 TH/MM3 (150-450) 118 TH/MM3 (150-450) Neutrophils (%) (Auto) 73.7 % (16.0-70.0) Monocytes (%) (Auto) 10.9 % (0.0-8.0) 10.9 % (0.0-8.0) Blood Urea Nitrogen 23 MG/DL (7-18) 21 MG/DL (7-18) Chloride Level 108 MEQ/L (98-107) 109 MEQ/L (98-107) Estimat Glomerular Filtration Rate 61 ML/MIN (>89) 85 ML/MIN (>89) Total Creatine Kinase 376 U/L (39-308) Creatine Kinase MB 5.8 NG/ML (0.5-3.6) Troponin I 0.19 NG/ML (0.02-0.05) 0.20 NG/ML (0.02-0.05) 0.15 NG/ML (0.02-0.05) Red Blood Count 4.24 MIL/MM3 (4.50-5.90) Hemoglobin 12.7 GM/DL (13.0-17.0) Hematocrit 38.4 % (39.0-51.0) Total Protein 6.1 GM/DL (6.4-8.2) Imaging Last Impressions Head Magnetic Resonance Angiography 06/17/17 Signed Impressions: Service Date/Time: Saturday, June 17, 2017 11:39 - CONCLUSION: 1. 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 However, considering the patient's clinical history, cannot completely exclude occlusion of the right anterior cerebral artery. If symptoms persist, CTA of the intracranial vessels could be performed for further anatomic characterization. 2. 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 3. Intracranial vessels are otherwise patent with disease Maxim Ramachandran MD Brain MRI 06/17/17 Signed Impressions: Service Date/Time: Saturday, June 17, 2017 11:39 - CONCLUSION: Minimal, chronic small vessel ischemic demyelination. Nothing acute Maxim Ramachandran MD Head CT 06/16/171703 Signed Impressions: Service Date/Time: Friday, June 16, 2017 17:36 - CONCLUSION: Negative exam. Maxim Ramachandran MD Lower Extremity Ultrasound 06/16/17 Signed Impressions: Service Date/Time: Friday, June 16, 2017 21:35 - CONCLUSION: Normal examination. Sebastián Harley MD Carotid Artery Ultrasound 06/16/17 Signed Impressions: Service Date/Time: Friday, June 16, 2017 19:21 - CONCLUSION: No evidence of flow-limiting carotid stenosis Sebastián Harley MD PE at Discharge GENERAL: This is a well-nourished, well-developed patient, in no apparent distress. CARDIOVASCULAR: Normal rate and regular rhythm without murmurs, gallops, or rubs. RESPIRATORY: Good respiratory efforts. Breath sounds equal and clear to auscultation bilaterally. GASTROINTESTINAL: Abdomen soft, non-tender, non-distended. Normal active bowel sounds MUSCULOSKELETAL: Extremities without cyanosis, or edema. NEURO: Alert & Oriented x4 to person, place, time, situation. Moves all ext x4 PSYCH: Appropriate mood and affect. Hospital Course (1) TIA (transient ischemic attack) vs hypertensive encephalopathy. Resolved MRI without stroke. Patient started on aspirin and Lipitor. Risk factor modification A1c 5.8. LDL 63. Strict BP control. No evidence of A. fib EKGs reviewed. History of atrial flutter status post ablation. Loop recorder will be implanted. Follow-up EEG results prior to discharge (2) Elevated troponin [place] to be secondary to uncontrolled hypertension per cardiology. Echocardiogram with EF of 50% with no motion wall abnormality. Continue aspirin (3) HTN. Restart home medications DVT prophylaxis with Lovenox and early ambulation Pt Condition on Discharge: Stable Discharge Disposition: Discharge Home Discharge Time: > 30 minutes Discharge Instructions DIET: Follow Instructions for: Heart Healthy Diet Activities you can perform: Regular-No Restrictions Activities to Avoid: Driving Follow up Referrals: Cardiology - 1 Week Neurology - 1 Week PCP Follow-up - 2-3 Days New Medications: Aspirin DR (Adult Aspirin EC Low Strength) 81 Mg Tabec 81 MG PO DAILY for Blood Clot Prevention, #30 TAB Continued Medications: Atorvastatin (Lipitor) 20 Mg Tab 20 MG PO HS for Cholesterol Management, #30 TAB 0 Refills Finasteride (Proscar) 5 Mg Tab 5 MG PO DAILY for Manage Prostate Problems, #30 TAB 0 Refills Do not crush. Losartan (Cozaar) 50 Mg Tab 50 MG PO DAILY for Blood Pressure Management, #30 TAB 0 Refills Omeprazole (Omeprazole) 20 Mg Tab 20 MG PO DAILY, #30 TAB 0 Refills Tamsulosin (Flomax) 0.4 Mg Cap 0.4 MG PO HS for Manage Prostate Problems, #30 CAP 0 Refills Denver Levine MD Jun 18, 2017 15:37
[2017-06-18 17:20] VITALS: BP 177/84; PULSE 57; RESP 18; TEMP 97.2; O2SAT 98
--- NOTE | 2017-06-18 18:32 | MA ---
cc: MICHAEL HECTOR DATE 06/18/2017 DATE OF 1940 PROCEDURE PERFORMED Loop recorder insertion. INDICATION TIA. Atrial fibrillation status post ablation. POSTPROCEDURE DIAGNOSIS Successful loop recorder insertion. Physician: Dr. Michael Hector and Dr. Renetta De Santiago DESCRIPTION OF PROCEDURE Consent signed. The patient was taken to the DOC unit in a fasting state. The left chest was prepped and draped in sterile fashion. Moderate sedation was used with versed and fentanyl and 1% lidocaine was used for local anesthesia in the left side fourth intercostal space. Then an 0.5-inch incision was made and the loop recorder was successfully inserted in place. After implantation the device was interrogated with adequate signaling. Procedure was terminated. The patient tolerated the procedure well without complications. Estimated blood loss less than 2 mL. The access site was closed with Steri-Strips. RECOMMENDATIONS Continue medical therapy as well as oral anticoagulation. The patient should follow up with Dr. De Santiago upon discharge. Michael Hector MD BEE TENDER/KK /3:39 PM /6:22 PM ELI
[2017-06-18] MEDS ORDERED: TAMSULOSIN HCL 0.4 MG CAP PO SCH (21:00)
[2017-06-18] MEDS ORDERED: ATORVASTATIN 20 MG TAB PO SCH (21:00)
--- NOTE | 2017-06-18 21:04 | MG ---
cc: ALTAGRACIA MAYA M.D. Lab No: [id number] Date: 06/18/17 Age: 76 Sex: M Race: DATE OF 1940 REFERRING MD Darcie ROOM 1431 With photic stimulation, EEG is awake. Altagracia Maya MD DF/EO /7:25 PM /8:53 PM
--- NOTE | 2017-06-18 21:05 | MG ---
cc: ALTAGRACIA MAYA M.D. Lab No: [id number] Date: 06/18/17 Age: 76 Sex: M Race: DATE OF [address] Sprague ROOM 1431 With photic stimulation. Awake study. MRI nothing acute. White matter disease noted. Admitted with feeling tired, generalized weakness, walking into a [employer] shop, lost the ability ___ words, lasting for an hour. History of SVT, pacemaker, hypertension, macular disease. MEDICATIONS 1. Lipitor. 2. Flomax. 3. Cozaar. 4. Aspirin. 5. Clonidine. DESCRIPTION OF RECORD The patient has a background alpha rhythm of 8-8.5 Hz, 20-30 microvolts, symmetrical background, low amplitude. Some myogenic artifact. There is some abnormality in the EKG as well, some PVCs and some other dysrhythmia noted. Hyperventilation was not performed. Photic stimulation did elicit a driving response. No epileptiform features. IMPRESSION Overall normal appearing EEG. Clinical correlation. Altagracia Maya MD DF/TORRI /7:26 PM /8:29 AM
[2017-06-19] MEDS ORDERED: ENOXAPARIN SODIUM 40 MG/0.4 ML SYRINGE SQ SCH (09:00)
== END 2017-06-18 18:55 | disposition home or self-care (01) | DRG 41 ==
LOC: NEPC 16:09 → NEDA 18:53 → OBSVTOIN 21:16 → N04A 06-17 12:27
PROVIDERS: ADMIT Internal Medicine; ATTEND Internal Medicine
PROC: 0JH602Z Insertion of Monitoring Device into Chest Subcutaneous Tissue and Fascia, Open Approach (ICD-10-PCS; principal; 2017-06-18)
DX: G45.9 Transient cerebral ischemic attack, unspecified (principal); I67.4 Hypertensive encephalopathy; I47.1 Supraventricular tachycardia; R74.8 Abnormal levels of other serum enzymes; I10 Essential (primary) hypertension; Z87.891 Personal history of nicotine dependence; Z85.820 Personal history of malignant melanoma of skin; Z96.642 Presence of left artificial hip joint
CPT/HCPCS: 33282; 70450; 70544; 70551; 80053; 80061; 82550; 82552; 82607; 83036; 84443; 84484; 85025; 85610; 85652; 85730; 93005; 93306; 93880; 93970; 95819; 99152; C1764; G8987-GP; G8988-GP; J0690; J1650; J2250; J3010

== ENCOUNTER 2017-11-25 10:21 | Day surgery (SDC) | payer OTHER ==
[~2017-11-25] VITALS: Ht 180.3 cm; Wt 94.1 kg
[2017-11-25] VITALS (9 sets, daily range): BP systolic 127–158; BP diastolic 72–88; PULSE 43–96; RESP 16; TEMP 98–98.6; O2SAT 95–98
[~2017-11-25 10:21] MED LIST changes: +ACETAMINOPHEN 1000 MG/100 ML 0 ML IV ONE; +ASPI1TAB56 PO; -BETA80TA PO; -CLAR10TA7 PO; +COZA50TA PO; +FAMOTIDINE 20 MG/2 ML VIAL ONE; -FINA5TAB77 PO; -FOLI1 PO; +HEPARIN SODIUM - IV 10,000 UNITS/10 ML VIAL ONE; -HYDR12.56 PO; +LIPI20TA PO; -LISI-360 PO; +NAPR500 PO; -OMEP20TA PO; +OMEP20TA93 PO; -POLY10O OD; +PROPOFOL 500 MG/50 ML INJ 250 ML ONE; +PROS5TAB PO; -PROS5TAB2 PO; +PROTAMINE SULFATE 50 MG/5 ML VIAL ONE; +TAMS5CAP PO; -THIA100T PO; -TUSSSUS PO
[2017-11-25] MEDS ORDERED: APIX5TAB PO (11:03)
[2017-11-25 11:14] LABS: AUTOMATED NEUTROPHIL # 2.9 TH/MM3 (1.8-7.7); BASOPHIL % 0.5 % (0.0-2.0); EOSINOPHIL # 0.1 TH/MM3 (0-0.4); EOSINOPHIL % 1.9 % (0.0-4.0); HEMATOCRIT 38.5 % (39.0-51.0); HEMOGLOBIN 13.1 GM/DL (13.0-17.0); LYMPH % 24.7 % (9.0-44.0); LYMPHOCYTE # 1.2 TH/MM3 (1.0-4.8); MEAN CELL VOLUME 88.8 FL (80.0-100.0); MEAN CORPUSCULAR HEMOGLOBIN 30.1 PG (27.0-34.0); MEAN CORPUSCULAR HGB CONC 33.9 % (32.0-36.0); MEAN PLATELET VOLUME 9.4 FL (7.0-11.0); MONO % 11.1 % (0.0-8.0); MONOCYTE # 0.5 TH/MM3 (0-0.9); NEUT % 61.8 % (16.0-70.0); PLATELET COUNT 135 TH/MM3 (150-450); RED BLOOD COUNT 4.34 MIL/MM3 (4.50-5.90); RED CELL DISTRIBUTION WIDTH 13.9 % (11.6-17.2); WHITE BLOOD COUNT 4.7 TH/MM3 (4.0-11.0)
[2017-11-25 11:23] LABS: INTERNATIONAL NORMALIZED RATIO 1.1 RATIO
[2017-11-25 11:32] LABS: BICARBONATE 24.5 MEQ/L (21.0-32.0); CALCIUM 8.5 MG/DL (8.5-10.1); CREATININE 0.95 MG/DL (0.60-1.30)
[2017-11-25] MEDS ORDERED: ONDANSETRON HCL 4 MG/2 ML VIAL IV ONE (12:00)
[2017-11-25] MEDS ORDERED: GLYCOPYRROLATE 1 MG/5 ML SYRINGE IV PUSH ONE (12:00)
[2017-11-25] MEDS ORDERED: ROCURONIUM INJ 50 MG/5 ML SYRINGE IV PUSH ONE (12:00)
[2017-11-25] MEDS ORDERED: LIDOCAINE HCL 1% PF 5 ML SYRINGE OTHER ONE (12:00)
[2017-11-25] MEDS ORDERED: NEOSTIGMINE 5 MG/5 ML SYRINGE IV PUSH ONE (12:00)
[2017-11-25] MEDS ORDERED: PHENYLEPH/NS 1000 MCG/10 ML SYR IV ONE (12:00)
[2017-11-25] MEDS ORDERED: SODIUM CHLORID 0.9% 500 ML INJ 500 ML IV ONE (12:00)
[2017-11-25] MEDS ORDERED: PROPOFOL 200 MG/20 ML AMP IV ONE (12:00)
[2017-11-25] MEDS ORDERED: ePHEDrine/NS 25 MG/5 ML SYRINGE IV ONE (12:00)
[2017-11-25] MEDS ORDERED: DEXAMETHASONE SOD PHOS 4 MG/ML VIAL IV ONE (12:00)
[2017-11-25] MEDS ORDERED: PROPOFOL 200 MG/20 ML AMP ONE ×2 (12:05→12:06)
[2017-11-25] MEDS ORDERED: HEPARIN-NS/PF FLUSH BAG 1,000 ML IV FLUSH ONE (12:06)
[2017-11-25] MEDS ORDERED: LEVOFLOXACIN 500 MG IV ONE (12:06)
[2017-11-25] MEDS ORDERED: HEPARIN SODIUM - IV 10,000 UNITS/10 ML VIAL ONE ×2 (12:07→12:23)
[2017-11-25] MEDS ORDERED: MIDAZOLAM HCL 2 MG/2 ML VIAL ONE (12:21)
[2017-11-25] MEDS ORDERED: LEVOFLOXACIN 500 MG PREMIX INJ 100 ML IV ONE (12:22)
[2017-11-25] MEDS ORDERED: PROTAMINE SULFATE 50 MG/5 ML VIAL ONE (12:23)
[2017-11-25] MEDS ORDERED: LIDOCAINE HCL 1% PF 30 ML VIAL ONE (12:49)
[2017-11-25] MEDS ORDERED: HEPARIN-D5W 25,000 U/250 ML 250 ML ONE (13:15)
[2017-11-25] MEDS ORDERED: PHENYLEPHRINE HCL 10 MG/ML VIAL ONE (13:20)
[2017-11-25] MEDS ORDERED: SODIUM CHLOR 0.9% 250 ML INJ 250 ML IV PRN (14:45)
[2017-11-25] MEDS ORDERED: ONDANSETRON HCL 4 MG/2 ML VIAL IV PUSH PRN (14:45)
[2017-11-25] MEDS ORDERED: LORazepam 2 MG/ML VIAL IV PUSH PRN (14:45)
[2017-11-25] MEDS ORDERED: oxyCODONE/ACETAMINOPHEN 5 MG/325 MG TAB PO PRN ×2 (14:45)
[2017-11-25] MEDS ORDERED: LIDOCAINE HCL 1% 50 ML VIAL INFIL PRN (14:45)
[2017-11-25] MEDS ORDERED: ATROPINE SULFATE 1 MG/ML VIAL IV PUSH PRN (14:45)
[2017-11-25] MEDS ORDERED: METOCLOPRAMIDE HCL 10 MG/2 ML VIAL IV PUSH PRN (14:45)
[2017-11-25] MEDS ORDERED: BACITRACIN OINT 0.9 GM PKT TOP ONE (14:45)
--- NOTE | 2017-11-25 15:00 | PD.CARD ---
Atrial Fibrillation Ablation PROCEDURE DATE: Nov 25, 2017 PROCEDURES PERFORMED: 1. Electrophysiology study on Isuprel infusion 2. CS cannulation 3. 3-D mapping 4. Transseptal approach 5. Right and left heart catheterization 6. Intracardiac echo 7. Radiofrequency ablation of atrial fibrillation 8. Pulmonary vein isolation 9. Posterior wall ablation 10. Mitral valve isolation 11. Mitral line creation 12. Anterior and posterior ablation INDICATIONS FOR THE PROCEDURE Mr. Ball is a 76-year-old male with hx of atrial fibrillation, very symptomatic, on anticoagulation referred for electrophysiology study and ablation. The risks, the nature and the benefits of the procedure were clearly stated to him. The risks include pneumothorax, cardiac perforation, stroke, need for open heart surgery and even . The patient understood and agreed to proceed. DESCRIPTION OF THE PROCEDURE IN DETAIL As written informed consent was obtained prior to esophageal echocardiogram, the patient was kept on the table where he was prepped and draped in the usual sterile fashion. Conscious sedation was initiated and maintained throughout the procedure by the anesthesiologist. Once sedation was verified, the right and left inguinal areas were anesthetized with 2% Xylocaine. Using modified Seldinger technique, the left femoral vein was cannulated on three occasions, three guidewires were advanced. Over the wire a 6, 7 and a 10-Tristanian Hemaquet were advanced. Then the left femoral artery was cannulated on one occasion, one guidewire was advanced. Over the wire a 4-Tristanian Hemaquet was advanced. Then the right femoral vein was cannulated on one occasion, one guidewire was advanced. Over the wire a 8-Tristanian Hemaquet was advanced. Then under fluoroscopic guidance through the 6 and 7-Tristanian Hemaquet, two 5-Tristanian Amadou curved quadripolar electrophysiology catheters were advanced and placed around the His as well as coronary sinus. Basic interval was measured. The patient was in sinus. Through the 10-Tristanian Hemaquet, a Cordis Xie AcuNav intracardiac echo catheter was advanced and placed at the right atrium. Multiple view was obtained. There was no pericardial effusion, pulmonary vein was seen, atrial septal was visualized. Then the 8-Tristanian Hemaquet in the right femoral vein was exchanged for Agilis transseptal sheath that was placed all the way to the superior vena cava. Through the sheath a Irene needle was advanced, then the sheath, the dilator and the needle were progressed until foci engaged. Once engaged, the needle was advanced. RF was delivered for 2 seconds. I was able to cross into the left atrium. Once the needle crossed, the dilator was advanced. Once the dilator crossed, the sheath was advanced. Once the sheath crossed, the dilator and the needle were removed. At this point I did flood the system and fluid movement was seen in the left atrium the indicates the sheath is in good position. The patient already received 10,000 units of heparin. The goal is to keep an ACT around 350 during ablation. Then through the sheath a [place] 20 pulse circumferential catheter was advanced. Using [employer] endocardial solution mapping system, a two-dimensional configuration of the left atrium was obtained. Points were taken at the left superior and inferior veins, right superior and inferior veins, mitral valve, and appendages. Then through the sheath a [place] TactiCath 65cm 3.5mm irrigated tipped mapping and radiofrequency ablation catheter was advanced. Esophageal probe was placed temperature monitoring during ablation. When it increased to 0.5 degrees Celsius above baseline, I moved to a different area of the atrium. First I did isolate the left superior and inferior vein. I did make a big [place] around the veins. Posterior was ablated. Then a mitral line was isolated. Then the right superior and inferior veins were isolated. I did remap the atrium. There is no significant signal into the veins. I did advance the circumferential catheter again into the vein. There was no signal into the vein , pacing from the vein showed no conduction to the atrium. Isuprel infusion was initiated at 20 mcg for over 20 minutes. No tachyarrhythmia was induced, post Isuprel no tachyarrhythmia was induced. At that point the procedure was complete. All catheters were removed, atrial septal sheath was exchanged for 9- Tristanian Hemaquet, intracardiac echo showed no pericardial effusion. There is still good flow in the pulmonary vein. The patient is going to be transferred to the recovery room. No incident report. The patient tolerated the procedure. Blood loss was minimal. FINDINGS 1. Electrocardiogram: At baseline the patient was in sinus, post procedure the patient was in sinus rhythm. 2. Basic interval: Base cycle length was around 890. AH at 132 and HV at 50 milliseconds. 3. Tachyarrhythmia: Atrial fibrillation was mapped and ablated. The ablation was successful. CONCLUSION Successful electrophysiology study, mapping, radiofrequency ablation of atrial fibrillation, pulmonary vein isolation, posterior ablation, mitral line creation. COMMENTS AND RECOMMENDATIONS The patient is going to be transferred to the telemetry unit. Will be observed and when stable can be discharged home. Carina De Santiago MD Nov 25, 2017 15:00
--- NOTE | 2017-11-25 15:03 | CATHPROC ---
Patient Name: VALERY FLORES Study #: [id number] Initial MD: Carina De Santiago Date of : 1940 Study Date: 11/25/2017 Cardiac Catheterization Report 11/25/2017 3:03:50 PM Financial #: [id number] 1 of 10 Patient Name: VALERY FLORES Study #: [id number] Initial MD: Carina De Santiago Date of : 1940 Study Date: 11/25/2017 Entire Case Report Patient Information Patient Name VALERY FLORES Date of 1940 Age 76 years Financial # [id number] Gender M AlternateID Lab Number 2 Room Number DC06 Height (in) 71.0 Height (cm) 180.3 BSA 2.16 Weight (lbs) 210.3 Weight (kg) 95.6 Patient Address/Phone Number Home Address [facility] Home Phone Number [address] [facility] [address] Study Information Study Number Admission Scheduled Start Study Start [id number] Nov 25 2017 10:21AM 11/25/2017 Nov 25 2017 12:07PM [place] Service Electrophysiology Study Admit Source Facility Department Other [facility] - Legal Transcriber Physician and Clinical Staff Initial Carina Espinal Community Engagement Manager Bahman Gilmore,RT(R) Other Anesthesia, RESIDENCE LIFE COORDINATOR Recorder Maggie Upton,RN Recorder Evelyn Ramos,JOSE A Scrub Marivel Barroso RCIS Procedures Performed Procedure Location (Site) Vessel Name Ablation Procedure ICE CATHETER INSERT RA Atruim RF Ablation LT. ATRIUM LT. ATRIUM 11/25/2017 3:03:50 PM Financial #: [id number] 2 of 10 Patient Name: VALERY FLORES Study #: [id number] Initial MD: Carina De Santiago Date of : 1940 Study Date: 11/25/2017 Equipment Time Assessment Consultant Description Size Mfg Part Number Used/Scraped NEEDLE, TRANSSEPTAL NRG 98 [id number] 12:47 [facility] Used C1 *[id number] [employer]/ EP [id number] 12:47 KIT, TRANSDUCER / AFIB Used PACER *[id number]- CATHETER, TACTICATH ABLAT BUNDLE 12:47 [facility] Used 65 BUNDLE *[id number]- BUNDLE [id number] CATHETER, FR7 OPTIMA SPIRAL 12:47 [facility] FR7 *[id number]- Used BUNDLE BUNDLE [id number] 12:47 [facility] CATHETER, JSN, QUAD BUNDLE FR 5 *[id number]- Used BUNDLE [id number] 12:47 [facility] [employer] CATHETER, JSN, QUAD BUNDLE FR 5 *[id number]- Used BUNDLE 10817-[place], [place]OL [place] TUBING 12:47 [facility] *[id number]- Used BUNDLE BUNDLE SHEATH, FR8.5 STEERABLE SM 12:47 [facility] 71CM [id number] Used 71CM BUNDLE COVER, TRANSDUCER CABLE 612-113 12:47 [employer] Used ACUNAV *[id number] 12:47 CORDIS/PACER SHEATH, FR10 MARIE 11CM FR 10 Used *[id number] 12:47 CORDIS/PACER SHEATH, FR9 MARIE 11CM FR 9 [id number] Used [id number] 12:47 [employer] PACK, CCL CUSTOM * Used *[id number] 12:47 MEDLINE PACER PRAJAPATI, LIMB * 2530 *[id number] Used [id number] 12:47 [employer] MEDICAL SHEATH, FR4.5 PRELUDE 11CM FR 4.5 Used [id number] 12:47 NAMIC TUBING, HIGH PRESSURE 48" 48" Used *[id number] [id number] 12:47 NAMIC TUBING, HIGH PRESSURE 48" 48" Used *[id number] [id number] 12:47 [employer] MEDICAL BLANKET,WARM AIR CCL * Used *[id number] [id number] 12:47 [facility] MEDICAL ELECTRODE KIT, FRANCOISE X SURFACE * Used *[id number] 402671 12:47 [facility] MEDICAL SHEATH, EPS, FR6 FAST CATH FR 6 Used *[id number] 12:47 [facility] MEDICAL SHEATH, EPS, FR7 FAST CATH FR 7 [id number] Used [id number] 12:47 [facility] MEDICAL SHEATH, EPS, FR8 FAST CATH FR 8 Used *[id number] CATHETER, ACUNAV FR10 ICE [id number] 13:22 ROSANNA FR 10 Used (ROSANNA) *[id number] [facility] PAD, ELECTROSURGICAL 12:47 * [id number] *[id number] Used SURGICAL GROUNDING (BLUE) 11/25/2017 3:03:50 PM Financial #: [id number] 3 of 10 Patient Name: VALERY FLORES Study #: [id number] Initial MD: Carina De Santiago Date of : 1940 Study Date: 11/25/2017 Insurance Information Insurance Payor Private Health Insurance Third Libertarian Third Libertarian Number [facility] History: Risk Factors Hypertension Dyslipidemia Yes Yes Cerebrovascular Disease Labs Hgb (g/dl) Hct (%) RBC (MIL/MM3) WBC (l/cumm) Platelets (thousands) 11.60-17.00 35.00-51.00 4.00-5.90 4.00-11.00 150.00-450.00 13.0 38 4.3 4.7 135 Glucose (mg/dl) BUN (mg/dl) Creatinine (mg/dl) BUN:Creatinine (1:x) 74.00-106.00 7.00-18.00 0.50-1.30 10.00-20.00 95 16 0.9 17.8 Na (meq/l) K (meq/l) 136.00-145.00 3.50-5.10 143 3.9 INR (PTT:PT) 0.90-1.10 1.1 Medication Medication Total Dose (Bolus/Oral) Medication Total Dosage/Unit 1% XYLOCAINE 40 mL HEPARIN 27304 units PROTAMINE 40 mg 11/25/2017 3:03:50 PM Financial #: [id number] 4 of 10 Patient Name: VALERY FLORES Study #: [id number] Initial MD: Carina De Santiago Date of : 1940 Study Date: 11/25/2017 Medications (Bolus/Oral) Medication Time Given Dosage/Unit Administered By Reason 1% XYLOCAINE 11/25/2017 1:14:28 PM 20 mL Carina De Santiago 20 mL 1% XYLOCAINE given in lab by Carina De Santiago in Left Groin via Subcutaneous. Ordered by Arias De Santiago 1% XYLOCAINE 11/25/2017 1:18:08 PM 20 mL Carina De Santiago 20 mL 1% XYLOCAINE given in lab by Carina De Santiago in Right Groin via Subcutaneous. Ordered by Kris De Santiago. HEPARIN 11/25/2017 1:42:12 PM 12943 units Carina De Santiago As per physicians tip bal order 61957 units HEPARIN given in lab by Carina De Santiago via Peripheral IV. Ordered by Carina De Santiago. Reason : As per physicians verbal order. PROTAMINE 11/25/2017 2:32:20 PM 40 mg Anesthesia, RESIDENCE LIFE COORDINATOR As per physicians verb al order 40 mg PROTAMINE given in lab by Anesthesia, RESIDENCE LIFE COORDINATOR. Ordered by Carina De Santiago. Reason: As per physicians verbal order. Medication (Drip) Medication Time Given Dosage/Unit Concentration/Unit Diluent (ml) Solution HEPARIN DRIP 11/25/2017 1:27:54 PM 1000 units/hr 73109 units 250 D5W 1000 units/hr HEPARIN DRIP given in lab by Kris, RESIDENCE LIFE COORDINATOR via Peripheral IV. Pump/Drip Flow = 10 ml /hr using [place] [address] units in 250 ml. Ordered by Carina De Santiago. Reason: As per physicians verbal order. HEPARIN DRIP STOPPED 11/25/2017 2:31:27 PM 0 units/hr 0 0 units/hr HEPARIN DRIP STOPPED in lab by Anesthesia, RESIDENCE LIFE COORDINATOR. Pump/Drip Flow = 0 ml/hr using [Solution Name]. Ordered by Carina De Santiago. ISUPREL 11/25/2017 2:15:00 PM 20 mcg/min 1 mg 250 NaCl .9 20 mcg/min ISUPREL given in lab by Kris RESIDENCE LIFE COORDINATOR via Peripheral IV. Pump/Drip Flow = 300 ml/hr usi ng NaCl .9 with a concentration of 1 mg in 250 ml. Ordered by Carina De Santiago. Reason: As per physicians verbal order. ISUPREL DRIP STOPPED 11/25/2017 2:30:08 PM 0 units/hr 0 0 units/hr ISUPREL DRIP STOPPED in lab by Anesthesia, RESIDENCE LIFE COORDINATOR. Pump/Drip Flow = 0 ml/hr using [Solution Name]. Ordered by Carina De Santiago. LEVAQUIN 11/25/2017 12:57:57 PM 100 mL/hr 500 100 NaCl .9 100 mL/hr LEVAQUIN given in lab by Evelyn Ramos, JOSE A via Peripheral IV. Pump/Drip Flow = 0 ml/hr us ing NaCl .9 with a concentration of 500 in 100 ml. Ordered by Carina De Santiago. Reason: As per physicians verbal order. 11/25/2017 3:03:50 PM Financial #: [id number] 5 of 10 Patient Name: VALERY FLORES Study #: [id number] Initial MD: Carina De Santiago Date of : 1940 Study Date: 11/25/2017 Initial Case Assessment Cardiovascular HR Rhythm NIBP 72 AF 203/92 Edema Present Skin color Skin None Normal Warm Dry Circulatory - Right Pulses Dorsalis Pedis 1 Scale (0,1,2,3,4,d) Circulatory - Left Pulses Dorsalis Pedis 1 Scale (0,1,2,3,4,d) Circulatory - Lower Extremities Color Lower Right Color Lower Left Normal Normal Neurological State Oriented to time-place- Alert Moves all extremities person Respiration - General Respiration Rate SpO2 (%) (B/min) 16 99 11/25/2017 3:03:50 PM Financial #: [id number] 6 of 10 Patient Name: VALERY FLORES Study #: [id number] Initial MD: Carina De Santiago Date of : 1940 Study Date: 11/25/2017 Final Case Assessment Cardiovascular HR NIBP 98 101/55 Edema Present Skin color Skin None Normal Warm Dry Circulatory - Right Pulses Dorsalis Pedis 1 Scale (0,1,2,3,4,d) Circulatory - Left Pulses Dorsalis Pedis 1 Scale (0,1,2,3,4,d) Circulatory - Lower Extremities Color Lower Right Color Lower Left Normal Normal Neurological State Oriented to time-place- Alert Moves all extremities person Respiration - General Respiration Rate SpO2 (%) (B/min) 18 99 Chronological Log Time Study Chronological Log 12:33:48 Patient arrived via Bed. 12:33:49 Patient Name, D.O.B, / Armband Verified By R.N. 12:33:49 Consent signed by the physician and the patient and verified by the Legal Transcriber staff. 12:33:50 Pre-op and post- op instructions given; patient acknowledges understanding of instructions. 12:33:52 Anesthesia at bedside. Assumes care of patient. 12:33:55 Patient has been NPO for More than 6Hrs. 12:33:57 Skin Breakdown- none per pt. Red ernesto inner left elbow not abraded or open. 12:34:29 History and physical on the chart. 12:38:54 Patient Warmer Placed on the Table. 11/25/2017 3:03:50 PM Financial #: [id number] Patient Name: VALERY FLORES Study #: [id number] Initial MD: Carina De Santiago Date of : 1940 Study Date: 11/25/2017 12:38:56 Disposable Defibrillator Pads Placed On Patient. 12:38:58 Maynor Prominences Protected 12:39:03 A # 20 IV was noted in the Wrist (right). Grade = 0 0.9% NaCl at KVO 12:39:31 A # 20 IV was noted in the Forearm (left). Grade = 0 0.9% NaCl at KVO Assessment: Initial Case, HR=72 BPM, Rhythm=AF, CNID=109/92 mmhg, Edema=None, Color=Normal, Ski n = Warm, Dry Right Pulses: Jeff Ped=1 Left Pulses: Jeff Ped=1 12:40:16 Lower Right Extremities: Color=Normal Lower Left Extremities: Color=Normal Neurological: State=Alert, Ox3, ELY Respiration: Resp=16 B/min, SpO2=99 % 12:42:48 Table restraints applied according to hospital policy 12:55:32 Pt intubated with Anesthesiologist present. 12:55:43 MD arrived. Indwelling Vargas #14fr catheter inserted aseptically without difficulty. Received clear yellow urine returns and bag 12:55:46 placed to bedside drainage. 100 mL/hr LEVAQUIN given in lab by Evelyn Ramos, RN via Peripheral IV. Pump/Drip Flow = 0 ml /hr using NaCl .9 12:57:57 with a concentration of 500 in 100 ml. Ordered by Carina De Santiago. Reason: As per physicians verb al order. Time Out. Correct patient, procedure, procedure equipment, site and side verified with physicia n present. Time 13:08:41 concurred by MD, individual staff and RESIDENCE LIFE COORDINATOR. Time Out #2 - Consents verified, patient in correct position, all results are labled and displa yed, safety precautions 13:09:45 taken, antibiotics administered. Time out concurred by MD, individual staff and RESIDENCE LIFE COORDINATOR in procedu re 13:09:46 Case Start 13:09:55 DANIELA in progress. 13:10:39 Reference ECG taken 13:14:28 20 mL 1% XYLOCAINE given in lab by Carina De Santiago in Left Groin via Subcutaneous. Ordered by Carina De Santiago. 13:14:40 Vascular access was obtained in the Fem Vein (left). 13:15:05 Vascular access was obtained in the Fem Vein (left). 13:15:55 Vascular access was obtained in the Fem Vein (left). 13:17:13 Vascular access was obtained in the Fem Art (left). 13:17:56 A SHEATH, FR4.5 PRELUDE 11CM FR 4.5 was advanced into the Fem Art (left) using the Modified Seldinger technique. 13:17:59 A SHEATH, EPS, FR7 FAST CATH FR 7 was advanced into the Fem Vein (left) using the Modified Seldinger technique. 13:17:59 A SHEATH, EPS, FR6 FAST CATH FR 6 was advanced into the Fem Art (right) using the Modified Seldinger technique. 13:18:00 A SHEATH, FR10 MARIE 11CM FR 10 was advanced into the Fem Art (right) using the Modified S eldinger technique. 13:18:08 20 mL 1% XYLOCAINE given in lab by Carina De Santiago in Right Groin via Subcutaneous. Ordered b Carina Garrison. 13:19:22 Vascular access was obtained in the Fem Vein (right). 13:19:37 A SHEATH, EPS, FR8 FAST CATH FR 8 was advanced into the Fem Vein (right) using the Modified Seldinger technique. A CATHETER, JSN, QUAD BUNDLE FR 5 was advanced vis Fem Vein (left) and placed in the CS. Placem ent was visually 13:21:09 confirmed under fluoroscopy. A CATHETER, JSN, QUAD BUNDLE FR 5 was advanced vis Fem Vein (left) and placed in the HIS. Place ment was 13:21:42 visually confirmed under fluoroscopy. 13:22:38 CATHETER, ACUNAV FR10 ICE (ROSANNA) FR 10 Was Postioned in the HRA via 10fr Sheath. 11/25/2017 3:03:50 PM Financial #: [id number] 8 of 10 Patient Name: VALERY FLORES Study #: [id number] Initial MD: Carina De Santiago Date of : 1940 Study Date: 11/25/2017 A SHEATH, FR8.5 STEERABLE SM 71CM BUNDLE 71CM was exchanged in the Fem Art (right). This was ne cessary in 13:23:40 order for catheter support. 13:24:01 Aleksandra needle in 13:26:33 A eps was advanced to the right atrium and passed through the septal wall to the left atriu m. 13:26:41 Aleksandra needle out 1000 units/hr HEPARIN DRIP given in lab by Anesthesia, RESIDENCE LIFE COORDINATOR via Peripheral IV. Pump/Drip Flow = 10 ml/hr using 13:27:54 [place] [address] units in 250 ml. Ordered by Carina De Santiago. Reason: As per phy sicians verbal order. A CATHETER, FR7 OPTIMA SPIRAL BUNDLE FR7 was advanced vis Fem Vein (right) and placed in the LA . Placement 13:29:34 was visually confirmed under fluoroscopy. 13:33:38 Activated Clotting Time Drawn 13:34:07 Mapping in progress. 13:38:43 ACT (Normal Range 90-180) = 333 15180 units HEPARIN given in lab by Carina De Santiago via Peripheral IV. Ordered by Carina De Santiago. Reason: As per 13:42:12 physicians verbal order. Mapping complete. Catheter removed. 13:48:17 A CATHETER, TACTICATH ABLAT 65 BUNDLE was advanced via Fem Vein (right) and placed in the LA. P lacement was 13:48:27 visually confirmed under fluoroscopy. 13:49:25 RF Ablation of the LT. ATRIUM with a CATHETER, TACTICATH ABLAT 65 BUNDLE. 13:49:26 Ablation in progress. 13:49:27 Activated Clotting Time Drawn 13:56:20 ACT (Normal Range 90-180) = 354 13:59:00 Ablation remains in progress 14:10:55 Ablation continues to be in progress 14:11:34 Atrial tachycardia induced 14:11:56 Tachycardia broken spontaneously 14:13:37 Ablation complete and catheter was removed A CATHETER, FR7 OPTIMA SPIRAL BUNDLE FR7 was advanced vis Fem Vein (right) and placed in the LA . Placement 14:13:39 was visually confirmed under fluoroscopy. 14:14:57 Atrial tachycardia induced 20 mcg/min ISUPREL given in lab by Anesthesia, RESIDENCE LIFE COORDINATOR via Peripheral IV. Pump/Drip Flow = 300 ml/ hr using NaCl .9 14:15:00 with a concentration of 1 mg in 250 ml. Ordered by Carina De Santiago. Reason: As per physicians tip bal order. 14:15:09 Tachycardia broken spontaneously 0 units/hr ISUPREL DRIP STOPPED in lab by Anesthesia, RESIDENCE LIFE COORDINATOR. Pump/Drip Flow = 0 ml/hr using [Mica ution Name]. 14:30:08 Ordered by Carina De Santiago. 14:30:59 A SHEATH, FR9 MARIE 11CM FR 9 was advanced into the Fem Vein (right) using the Modified Se mckeon technique. 0 units/hr HEPARIN DRIP STOPPED in lab by Anesthesia, RESIDENCE LIFE COORDINATOR. Pump/Drip Flow = 0 ml/hr using [Mica ution Name]. 14:31:27 Ordered by Carina De Santiago. 14:31:29 All catheters out, sheaths secured in place and connected to 0.9%NaCl for transport. Sheath s will be pulled in PACU. 40 mg PROTAMINE given in lab by Anesthesia, CHRISTOPHE. Ordered by Carina De Santiago. Reason: As per phys icians verbal 14:32:20 order. 14:36:22 PACU called. Spoke to Cristin 14:36:46 Bedside Report will be given. 14:37:11 Ablation procedure performed: AFIB. 14:37:20 EP Procedure was performed. 11/25/2017 3:03:50 PM Financial #: [id number] Patient Name: VALERY FLORES Study #: [id number] Initial MD: Carina De Santiago Date of : 1940 Study Date: 11/25/2017 14:37:35 Pt extubated by anesthesia and placed on supplemental oxygen. 14:38:00 Case End 14:39:41 No case complications noted. 14:39:43 Cine recording checked. 14:46:22 Activated Clotting Time Drawn 14:48:22 ACT (Normal Range 90-180) = 118 Assessment: Final Case, HR=98 BPM, VHWP=099/55 mmhg, Edema=None, Color=Normal, Skin = Warm, Dr y Right Pulses: Jeff Ped=1 Left Pulses: Jeff Ped=1 14:50:23 Lower Right Extremities: Color=Normal Lower Left Extremities: Color=Normal Neurological: State=Alert, Ox3, ELY Respiration: Resp=18 B/min, SpO2=99 % Patient moved to stretcher.Defib and Taye pads all removed. Pt transported to PACU in stable c ondition independently 15:02:10 breathing with RESIDENCE LIFE COORDINATOR and tech. End Study - Contrast Media Used In Study Contrast Total Opened (mL) Total Used (mL) Total Wasted (mL) Unspecified 0 0 0 End Study - Maximum Contrast Load Max Contrast Load (mL) 531.1 End Study - Radiation Exposure Fluoro Time (minutes) 0.8 End Study - Patient Disposition Complications Transferred To Interventional Outcome No Telemetry Bed successful 11/25/2017 3:03:50 PM Financial #: [id number]
[2017-11-25] MEDS ORDERED: DO NOT ADM ANY ANTICOAGULANT DRUGS PRN (15:10)
[2017-11-25] MEDS: APIXABAN 5 MG TABLET PO SCH (20:37)
[2017-11-25] MEDS ORDERED: TAMSULOSIN HCL 0.4 MG CAP PO SCH (21:00)
[2017-11-25] MEDS ORDERED: ATORVASTATIN 20 MG TAB PO SCH (21:00)
[2017-11-26] VITALS (12 sets, daily range): BP systolic 124–155; BP diastolic 58–78; PULSE 72–87; RESP 16; TEMP 97.8–97.9; O2SAT 96–98
[2017-11-26 06:55] LABS: INTERNATIONAL NORMALIZED RATIO 1.1 RATIO; PROTHROMBIN TIME - PATIENT 10.8 SEC (9.8-11.6)
--- NOTE | 2017-11-26 08:13 | PD.CARD.PN ---
Subjective Subjective Remarks Feels okay Objective Medications Current Medications Medications (Trade) Dose Ordered Sig/Don Route Start Time Stop Time Status Last Admin (Percocet 5-325 Mg) 1 tab Q4H PRN PO 11/25/17 14:45 (Percocet 5-325 Mg) 2 tab Q4H PRN PO 11/25/17 14:45 (Ativan Inj) 0.5 mg UNSCH PRN IV PUSH 11/25/17 14:45 11/26/17 14:44 (Atropine Inj) 0.5 mg UNSCH PRN IV PUSH 11/25/17 14:45 Sodium Chloride 250 ml @ 500 mls/hr ONCE PRN IV 11/25/17 14:45 11/26/17 14:44 (Reglan Inj) 10 mg Q4H PRN IV PUSH 11/25/17 14:45 (Zofran Inj) 4 mg Q4H PRN IV PUSH 11/25/17 14:45 (Xylocaine 1% Inj (50 ml)) 10 ml UNSCH PRN INFIL 11/25/17 14:45 11/26/17 14:44 (Eliquis) 5 mg BID PO 11/25/17 21:00 11/25/17 20:37 (Lipitor) 20 mg HS PO 11/25/17 21:00 11/25/17 20:37 (Proscar) 5 mg DAILY PO 11/26/17 09:00 (Cozaar) 50 mg DAILY PO 11/26/17 09:00 (Flomax) 0.4 mg HS PO 11/25/17 21:00 11/25/17 20:37 (Protonix) 20 mg DAILY PO 11/26/17 09:00 Miscellaneous Information ALL NURSING DEPARTME... UNSCH PRN .XX 11/25/17 15:10 11/26/17 15:09 Vital Signs / I&O Vital Signs Date Time Temp Pulse Resp B/P (MAP) Pulse Ox O2 Delivery O2 Flow Rate FiO2 11/26/17 06:00 79 11/26/17 05:00 75 11/26/17 04:00 76 11/26/17 03:00 77 11/26/17 03:00 97.9 75 16 124/58 (80) 96 11/26/17 02:00 79 11/26/17 01:00 87 11/26/17 00:00 83 11/25/17 23:00 90 11/25/17 23:00 98.6 92 16 127/72 (90) 96 11/25/17 22:00 88 11/25/17 21:00 86 11/25/17 20:00 88 11/25/17 20:00 98.0 88 16 156/85 (108) 95 11/25/17 19:00 96 11/25/17 18:00 81 11/25/17 17:00 82 11/25/17 16:53 98.0 83 16 156/88 (110) 98 11/25/17 16:00 80 16 146/74 (98) 99 Room Air 11/25/17 15:45 80 16 136/81 (99) 99 Nasal Cannula 2 11/25/17 15:30 81 16 136/64 (88) 99 Nasal Cannula 2 11/25/17 15:15 82 16 143/81 (101) 99 Nasal Cannula 2 11/25/17 15:10 97.4 72 14 153/80 (104) 98 Nasal Cannula 11/25/17 11:04 98.1 43 16 158/82 (107) 96 I/O 11/25/17 11/25/17 11/25/17 11/26/17 11/26/17 11/26/17 07:00 15:00 23:00 07:00 15:00 23:00 Intake Total 720 ml Output Total 1450 ml Balance -730 ml Intake Oral 720 ml Output Urine Total 1450 ml # Bowel Movements 0 Physical Exam GENERAL: Well-nourished, well-developed patient. SKIN: Warm and dry. Groin site soft without bruising or bleeding. HEAD: Normocephalic. EYES: No scleral icterus. No injection or drainage. NECK: Supple, trachea midline. No JVD or lymphadenopathy. CARDIOVASCULAR: Regular rate and rhythm without murmurs, gallops, or rubs. RESPIRATORY: Breath sounds equal bilaterally. No accessory muscle use. GASTROINTESTINAL: Abdomen soft, non-tender, nondistended. EXTREMITIES: No cyanosis, or edema. NEUROLOGICAL: Awake, alert, and oriented x 3. Non-focal. Laboratory Laboratory Tests Test 11/25/17 10:50 11/26/17 05:32 White Blood Count 4.7 TH/MM3 Red Blood Count 4.34 MIL/MM3 Hemoglobin 13.1 GM/DL Hematocrit 38.5 % Mean Corpuscular Volume 88.8 FL Mean Corpuscular Hemoglobin 30.1 PG Mean Corpuscular Hemoglobin Concent 33.9 % Red Cell Distribution Width 13.9 % Platelet Count 135 TH/MM3 Mean Platelet Volume 9.4 FL Neutrophils (%) (Auto) 61.8 % Lymphocytes (%) (Auto) 24.7 % Monocytes (%) (Auto) 11.1 % Eosinophils (%) (Auto) 1.9 % Basophils (%) (Auto) 0.5 % Neutrophils # (Auto) 2.9 TH/MM3 Lymphocytes # (Auto) 1.2 TH/MM3 Monocytes # (Auto) 0.5 TH/MM3 Eosinophils # (Auto) 0.1 TH/MM3 Basophils # (Auto) 0.0 TH/MM3 CBC Comment DIFF FINAL Differential Comment Prothrombin Time 11.0 SEC 10.8 SEC Prothromb Time International Ratio 1.1 RATIO 1.1 RATIO Activated Partial Thromboplast Time 27.3 SEC 25.2 SEC Blood Urea Nitrogen 16 MG/DL Creatinine 0.95 MG/DL Random Glucose 95 MG/DL Calcium Level 8.5 MG/DL Sodium Level 143 MEQ/L Potassium Level 3.9 MEQ/L Chloride Level 110 MEQ/L Carbon Dioxide Level 24.5 MEQ/L Anion Gap 9 MEQ/L Estimat Glomerular Filtration Rate 77 ML/MIN Assessment and Plan Problem List: (1) Atrial fibrillation ICD Codes: I48.91 - Unspecified atrial fibrillation Plan: SR on tele s/p ablation (2) S/P ablation of atrial fibrillation ICD Codes: Z98.890 - Other specified postprocedural states; Z86.79 - Personal history of other diseases of the circulatory system Plan: Stable s/p ablation. Continue Eliquis, discharge home, follow-up with Dr. De Santiago in 3 weeks per my discussion with him. Problem Qualifiers (1) Atrial fibrillation: Qualified Codes: I48.0 - Paroxysmal atrial fibrillation Nikki Quan Nov 26, 2017 08:13
[2017-11-26] MEDS ORDERED: PANTOPRAZOLE SOD 20 MG DELAYED RELEASE TAB PO SCH (09:00)
[2017-11-26] MEDS ORDERED: FINASTERIDE 5 MG TAB PO SCH (09:00)
[2017-11-26] MEDS ORDERED: LOSARTAN 50 MG TAB PO SCH (09:00)
[2017-11-26] MEDS: APIXABAN 5 MG TABLET PO SCH (10:04)
--- NOTE | 2017-11-26 13:10 | EKG ---
Date Performed: 11/26/2017 Time Performed: 05:18:34 PTAGE: 76 years EKG: Sinus rhythm with bigeminal PVCs with borderline 1st degree A-V block Right bundle branch block Abnormal ECG PREVIOUS TRACING : 11/25/2017 15.47 DOCTOR: Matias Helton Interpretating Date/Time 11/26/2017 13:06:46
--- NOTE | 2017-11-26 13:12 | EKG ---
Date Performed: 11/25/2017 Time Performed: 15:47:46 PTAGE: 76 years EKG: Sinus rhythm WITH FREQUENT VENTRICULAR PREMATURE COMPLEXES RIGHT BUNDLE BRANCH BLOCK ABNORMAL ECG PREVIOUS TRACING : 11/25/2017 11.34 DOCTOR: Matias Helton Interpretating Date/Time 11/26/2017 13:11:39
--- NOTE | 2017-11-26 13:25 | EKG ---
Date Performed: 11/25/2017 Time Performed: 11:34:14 PTAGE: 76 years EKG: Sinus rhythm with frequent multifocal PVCs with borderline 1st degree A-V block. Right bundle branch block Abnorm al ECG PREVIOUS TRACING : 11/25/2017 11.33 DOCTOR: Matias Helton Interpretating Date/Time 11/26/2017 13:24:15
== END 2017-11-26 12:22 | disposition home or self-care (01) ==
LOC: HDIC 10:21 → HDOC 10:21 → HCIS 17:04 → HDOC 11-26 12:22
PROVIDERS: ATTEND Internal Medicine Interventional Cardiology
DX: I48.0 Paroxysmal atrial fibrillation (principal); I47.1 Supraventricular tachycardia; I11.9 Hypertensive heart disease without heart failure; Z79.01 Long term (current) use of anticoagulants
CPT/HCPCS: 00537; 80048; 85002; 85025; 85610; 85730; 86850; 86900; 86901; 93005; 93312; 93320; 93325; 93613; 93623; 93656; 93662; C1730; C1731; C1732; C1759; C1766; C2630; J1100; J1644; J1956; J2250; J2370; J2405; J2710; J2720; J3010; J7040; J0131